=== PATIENT | female | born 1970 | race Caucasian/White ===

== ENCOUNTER 2018-11-06 14:41 | Inpatient (IN) ==
[2018-11-06] MEDS ORDERED: MethylPREDNISolone Sod Succinate Inj 125 MG/2 ML Vial IV.PUSH ONE (15:20)
--- NOTE | 2018-11-06 15:27 | ED ---
HPI General Chief Complaint: Shortness of Breath/Dyspnea Stated Complaint: sob/cough x 2 wks-worse lastnight Time Seen by Provider: 11/06/18 14:57 Source: patient Mode of arrival: ambulatory Limitations: no limitations History of Present Illness Patient is a 47-year-old female with past medical history of tobacco abuse, asthma, presents the emergency room with complaints of shortness of breath with cough and congestion. Patient reports that over the past few months, she has not been feeling well. Patient reports that she has been feeling short of breath and has had a productive cough. Patient reports that she has seen a casino worker in the past -Dr. Kyle who started her on albuterol nebulizer treatments. Patient reports that she took her last dose of albuterol last night. She has no follow-up with pulmonology as she has no insurance. Patient reports concerns as for the past few weeks, her cough has progressed. Patient reports that she is coughing up pus. Denies any fever/chills. Reports that she is a past smoker, she quit smoking cigarettes about 6-7 weeks ago. MD Complaint: Reports shortness of breath, cough and "asthma attack" Onset (ago): month(s) Severity: moderate Consistency/Duration: constant Relieving factors: bronchodilators Exacerbating factors: nothing Known history of: Reports COPD Treatment prior to arrival: Reports none Related Data Home Medications Medication Instructions Recorded Confirmed albuterol sulfate 2.5 mg INHALATION Q4-6H PRN 11/06/18 11/06/18 alprazolam [Xanax] mg PO BID PRN 11/06/18 Allergies Allergy/AdvReac Type Severity Reaction Status Date / Time codeine Allergy Itching Verified 11/06/18 14:46 Penicillins Allergy Hives Verified 11/06/18 14:46 Review of Systems ROS: all other systems reviewed are negative PMFSH History History Provided By: Patient Medical History Medical History Asthma (Acute) Anxiety (Acute) Hx of hysterectomy (Acute) Surgical History Surgical History Hx of elbow surgery (Acute) Social History Social History Substance History: No History of Abuse Second Hand Smoke Exposure: Yes Smoking Status: Former smoker Tobacco Type: Cigarettes How Often Do You Have a Drink Containing Alcohol: Never Recent Travel in [facility] within the Last 8 Weeks: No Recent Out of Country Travel within the Last 8 Weeks: No Exam Narrative Exam Narrative: GENERAL: Moderate distress SKIN: Focused skin assessment warm/dry. HEAD: Atraumatic. Normocephalic. EYES: Pupils equal and round. No scleral icterus. No injection or drainage. ENT: No nasal bleeding or discharge. Mucous membranes pink and moist. NECK: Trachea midline. No JVD. CARDIOVASCULAR: Tachycardic. No murmur appreciated. RESPIRATORY: No accessory muscle use. Clear to auscultation. Breath sounds equal bilaterally. GASTROINTESTINAL: Abdomen soft, non-tender, nondistended. Hepatic and splenic margins not palpable. MUSCULOSKELETAL: No obvious deformities. No clubbing. No cyanosis. No edema. NEUROLOGICAL: Awake and alert. No obvious cranial nerve deficits. Motor grossly within normal limits. Normal speech. PSYCHIATRIC: Anxious mood and affect; insight and judgment normal. Course Initial Documented Vital Signs Temperature 97.9 F 11/06/18 14:42 Pulse Rate 122 H 11/06/18 14:42 Respiratory Rate 20 11/06/18 14:42 Blood Pressure 120/76 11/06/18 14:42 Pulse Oximetry 98 11/06/18 14:42 Last Documented Vital Signs Temperature 97.9 F 11/06/18 14:42 Pulse Rate 110 H 11/06/18 18:04 Respiratory Rate 20 11/06/18 18:04 Blood Pressure 126/79 11/06/18 18:04 Pulse Oximetry 98 11/06/18 18:04 Medical Decision Making MDM Narrative Medical decision making narrative: During the course of the patients emergency department visit, the patients history, examination, and differential diagnosis were reviewed with the patient. The patient was placed on a ict sales representative with oximetry and frequent blood pressure monitoring. The patient had an IV access obtained and blood work sent for analysis. The patient was initially provided duoneb as well as a dose of solumedrol and IVF. The patients laboratory studies were reviewed and remarkable for WBC 9.7, hemoglobin 10.3, hematocrit 29.6, platelets 985 INR 1.0 Sodium 128, potassium 3.9, chloride 93, BUN 6, creatinine 0.43, glucose 78 Radiology studies were reviewed and remarkable for X-ray of the chest shows a left lobe infiltrate with a small effusion. Levaquin was ordered to treat the left lower lobe infiltrate Patient with a foul-smelling odor in her room, she shows me a bottle with pus in it, will order a CT of her chest with IV contrast to evaluate for possible empyema vs abscess CTA of the chest shows a dense consolidation to the left lower lobe with expected intraparenchymal abscesses Case reviewed with Dr. Talavera who accepts patient to service I did review results of ct study with patient Medical Screen Exam Complete: Yes Emergency Medical Condition: Yes Differential Diagnosis Differential Diagnosis: Empyema, pneumonia, asthma exacerbation, COPD exacerbation, bronchitis Medical Records Medical records reviewed: Yes I reviewed the patient's medical records. Lab Data Result diagrams: 11/06/18 15:35 11/06/18 15:35 Lab Results 11/06/18 11/06/18 11/06/18 Range/Units 15:35 15:35 15:35 CBC w Diff Auto diff final WBC 9.7 (4.0-11.0) th/mm3 RBC 3.29 L (4.00-5.30) mil/mm3 Hgb 10.3 L (11.6-15.3) gm/dL Hct 29.6 L (35.0-46.0) % MCV 90.0 (80.0-100.0) fL MCH 31.3 (27.0-34.0) pg MCHC 34.7 (32.0-36.0) % RDW 13.9 (11.6-17.2) % Plt Count 985 H (150-450) th/mm3 MPV 6.2 L (7.0-11.0) fL Neut % (Auto) 73.2 H (16.0-70.0) % Lymph % (Auto) 16.6 (9.0-44.0) % [place] % (Auto) 8.6 H (0.0-8.0) % Eos % (Auto) 0.7 (0.0-4.0) % Baso % (Auto) 0.9 (0.0-2.0) % Neut # (Auto) 7.1 (1.8-7.7) th/mm3 Lymph # (Auto) 1.6 (1.0-4.8) th/mm3 [place] # (Auto) 0.8 (0.0-0.9) th/mm3 Eos # (Auto) 0.1 (0.0-0.4) th/mm3 Baso # (Auto) 0.1 (0.0-0.2) th/mm3 WBC Differential . Differential Comment . PT 10.5 (9.8-11.6) sec INR 1.0 Ratio Sodium 128 L (136-145) meq/L Potassium 3.9 (3.5-5.1) meq/L Chloride 93 L (98-107) meq/L Carbon Dioxide 26.7 (21.0-32.0) meq/L Anion Gap 8 (5-15) meq/L BUN 6 L (7-18) mg/dL Creatinine 0.48 L (0.50-1.00) mg/dL Estimated GFR Greater than 89 (>89) mL/min Random Glucose 78 (74-106) mg/dL Calcium 8.4 L (8.5-10.1) mg/dL Total Bilirubin 0.4 (0.2-1.0) mg/dL AST 25 (15-37) U/L ALT 18 (10-53) U/L Alkaline Phosphatase 110 (45-117) U/L Total Creatine Kinase 30 (26-192) U/L Troponin I Less than 0.02 L (0.02-0.05) ng/mL Total Protein 8.9 H (6.4-8.2) g/dL Albumin 1.9 L (3.4-5.0) g/dL Urine Opiates Screen (Neg) Ur Barbiturates Screen (Neg) Ur Amphetamines Screen (Neg) U Benzodiazepines Scrn (Neg) Urine Cocaine Screen (Neg) U Cannabinoids Screen (Neg) 11/06/18 Range/Units 15:45 CBC w Diff WBC (4.0-11.0) th/mm3 RBC (4.00-5.30) mil/mm3 Hgb (11.6-15.3) gm/dL Hct (35.0-46.0) % MCV (80.0-100.0) fL MCH (27.0-34.0) pg MCHC (32.0-36.0) % RDW (11.6-17.2) % Plt Count (150-450) th/mm3 MPV (7.0-11.0) fL Neut % (Auto) (16.0-70.0) % Lymph % (Auto) (9.0-44.0) % [place] % (Auto) (0.0-8.0) % Eos % (Auto) (0.0-4.0) % Baso % (Auto) (0.0-2.0) % Neut # (Auto) (1.8-7.7) th/mm3 Lymph # (Auto) (1.0-4.8) th/mm3 [place] # (Auto) (0.0-0.9) th/mm3 Eos # (Auto) (0.0-0.4) th/mm3 Baso # (Auto) (0.0-0.2) th/mm3 WBC Differential Differential Comment PT (9.8-11.6) sec INR Ratio Sodium (136-145) meq/L Potassium (3.5-5.1) meq/L Chloride (98-107) meq/L Carbon Dioxide (21.0-32.0) meq/L Anion Gap (5-15) meq/L BUN (7-18) mg/dL Creatinine (0.50-1.00) mg/dL Estimated GFR (>89) mL/min Random Glucose (74-106) mg/dL Calcium (8.5-10.1) mg/dL Total Bilirubin (0.2-1.0) mg/dL AST (15-37) U/L ALT (10-53) U/L Alkaline Phosphatase (45-117) U/L Total Creatine Kinase (26-192) U/L Troponin I (0.02-0.05) ng/mL Total Protein (6.4-8.2) g/dL Albumin (3.4-5.0) g/dL Urine Opiates Screen Neg (Neg) Ur Barbiturates Screen Neg (Neg) Ur Amphetamines Screen Neg (Neg) U Benzodiazepines Scrn Pos H (Neg) Urine Cocaine Screen Neg (Neg) U Cannabinoids Screen Pos H (Neg) Imaging Data Radiologist's impression: Chest X-Ray 11/06/18 15:21 CONCLUSION: Left lower lobe infiltrate with small effusion. Chest CTA 11/06/18 16:30 CONCLUSION: 1. Dense consolidation involving the left lower lobe with suspected intraparenchymal abscesses with the largest measuring 4 cm. 2. No acute pulmonary emboli. ECG Data EKG Prior to Arrival: No Interpretation: EKG at 1556: Sinus tach at 117bpm, qt/qtc: 304/374 Discharge Plan Discharge Disposition Patient Disposition: ED Admit(ED Internal Use Only) Discharge Condition Condition: Stable Discharge Order Discharge Orders: ED Use Only Admit Order (Routine); Ordered 11/06/18 Ordered By: Didi Aguilar Physicians Team ED Provider: Didi Aguilar Primary Care Provider: Primary Care Lolis,Kaur Attending Provider: Ricardo Talavera Other Providers: Brooklynn Roberts ; Suhas Landry V Status ED Status: Admitted Patient
[2018-11-06] MEDS ORDERED: Sod Chloride 0.9% Inj 1,000 ML IV.SIG SCH (15:30)
[2018-11-06 15:53] LABS: Baso # (Auto) 0.1 th/mm3 (0.0-0.2); Baso % (Auto) 0.9 % (0.0-2.0); Eos # (Auto) 0.1 th/mm3 (0.0-0.4); Eos % (Auto) 0.7 % (0.0-4.0); Hematocrit 29.6 % (35.0-46.0); Hemoglobin 10.3 gm/dL (11.6-15.3); Lymph # (Auto) 1.6 th/mm3 (1.0-4.8); Lymph % (Auto) 16.6 % (9.0-44.0); Mean Corpuscular HGB Conc 34.7 % (32.0-36.0); Mean Corpuscular Hemoglobin 31.3 pg (27.0-34.0); Mean Platelet Volume 6.2 fL (7.0-11.0); Mono # (Auto) 0.8 th/mm3 (0.0-0.9); Mono % (Auto) 8.6 % (0.0-8.0); Neut # (Auto) 7.1 th/mm3 (1.8-7.7); Neut % (Auto) 73.2 % (16.0-70.0); Platelet Count 985 th/mm3 (150-450); Red Blood Count 3.29 mil/mm3 (4.00-5.30); Red Cell Distribution Width 13.9 % (11.6-17.2); White Blood Count 9.7 th/mm3 (4.0-11.0)
--- NOTE | 2018-11-06 16:00 | XR ---
EXAM DATE: 11/06/2018 3:49 PM EST AGE/SEX: 47 years / Female INDICATIONS: Short of breath, chest pains CLINICAL DATA: This is the patient's initial encounter. Patient reports that signs and symptoms have been present for 1 month and indicates a pain score of 8/10. MEDICAL/SURGICAL HISTORY: None. None. COMPARISON: No prior exams available for comparison. FINDINGS: A single AP view of the chest demonstrates an intra-alveolar infiltrate involving the left lower lob e. Tiny left effusion. Right lung is clear. Heart is normal in size. CONCLUSION: Left lower lobe infiltrate with small effusion. Electronically signed by: Allen Carrillo MD Board Certified Radiologist 11/06/2018 3:59 PM EST
[2018-11-06 16:04] LABS: Chloride 93 meq/L (98-107); Potassium 3.9 meq/L (3.5-5.1); Sodium 128 meq/L (136-145)
[2018-11-06 16:06] LABS: Prothrombin Time 10.5 sec (9.8-11.6)
[2018-11-06 16:10] LABS: Albumin 1.9 g/dL (3.4-5.0); Anion Gap 8 meq/L (5-15); Blood Urea Nitrogen 6 mg/dL (7-18); Calcium 8.4 mg/dL (8.5-10.1); Carbon Dioxide 26.7 meq/L (21.0-32.0); Glucose,Random 78 mg/dL (74-106)
[2018-11-06 16:12] LABS: Amphetamine Screen,Urine Neg (Neg); Barbiturate Screen,Urine Neg (Neg); Cannabinoid Screen,Urine Pos (Neg); Cocaine Screen,Urine Neg (Neg)
[2018-11-06 16:13] LABS: Alanine Aminotransferase 18 U/L (10-53); Aspartate Aminotransferase 25 U/L (15-37)
[2018-11-06 16:14] LABS: Glomerular Filtration Rate Greater Than 89 mL/min (>89)
[2018-11-06 16:15] LABS: Total Protein 8.9 g/dL (6.4-8.2)
[2018-11-06 16:16] LABS: Alkaline Phosphatase 110 U/L (45-117)
[2018-11-06 16:21] LABS: Opiate Screen,Urine Neg (Neg)
[2018-11-06 16:21] LABS: Creatine Kinase 30 U/L (26-192)
--- NOTE | 2018-11-06 17:40 | CT ---
EXAM DATE: 11/06/2018 5:20 PM EST AGE/SEX: 47 years / Female INDICATIONS: Short of breath, productive cough, and congestion for two weeks, worse since last night . CLINICAL DATA: This is the patient's initial encounter. Patient reports that signs and symptoms have been present for 2 weeks and indicates a pain score of 8/10. MEDICAL/SURGICAL HISTORY: Asthma. Hysterectomy. RADIATION DOSE: 5.76 CTDI (mGy) COMPARISON: No prior exams available for comparison. TECHNIQUE: Volumetric scanning was performed using a multi-row detector CT scanner during bolus infu stiven of 65 ml Omnipaque 350 (iohexol) nonionic water-soluble contrast as a single exam dose. The adalberto a was post processed with a variety of visualization algorithms including full volume maximum intensi ty projection and sliding thin slab reformation. Using automated exposure control and adjustment of t he mA and/or kV according to patient size, radiation dose was kept as low as reasonably achievable to obtain optimal diagnostic quality images. DICOM format image data is available electronically for r eview and comparison. FINDINGS: Pulmonary Arteries: No filling defects are seen in the pulmonary arteries out to the subsegmental ve ssels. The left and right pulmonary arteries are normal in diameter. Lung: Diffuse emphysematous changes most pronounced within the upper lobes bilaterally. Dense consol idation involving the entire left lower lobe. Several parenchymal abscesses are seen involving the le ft lower lobe. The largest measures approximately 4 cm. Linear scarring within the right base.. Effusion: None. Mediastinum: No evidence of mediastinal or hilar adenopathy. Other: The axilla is unremarkable. CONCLUSION: 1. Dense consolidation involving the left lower lobe with suspected intraparenchymal abscesses with the largest measuring 4 cm. 2. No acute pulmonary emboli. Electronically signed by: Allen Carrillo MD Board Certified Radiologist 11/06/2018 5:39 PM EST
[2018-11-06] MEDS ORDERED: Acetaminophen 325 MG Tablet PO PRN (17:50)
[2018-11-06] MEDS ORDERED: Vancomycin Consult Pharmacy OTHER PRN (17:58)
[2018-11-06] MEDS ORDERED: Vancomycin Inj 1,000 MG in Sodium Chlor 0.9% Inj 250 ML IV.SIG ONE (18:00)
[2018-11-06] MEDS: ALPRAZolam 0.25 MG Tablet PO PRN (18:29)
--- NOTE | 2018-11-06 18:36 | P.HPIM ---
History of Present Illness Primary Care Physician: No Primary Care Physician Chief Complaint: Persistant Cough, Recurrent Pneumonia with foul odor History of Present Illness: Mrs. Caba is a 47 year old female. She says for approximately 8 weeks she has been having problems with recurrent cough. The cough started shortly after a vacation down to [place]. She is a smoker and likely has underlying lung disease. In the past 8 weeks she has visited the hospital several times. She is been diagnosed with pneumonia and treated with antibiotics. Breathing treatments have been provided for symptoms. Despite these treatments the patient has persistent coughing and productive coughing. Sputum and breath have developed a chronic foul odor. No fevers reported. CTA of the chest today shows evidence of a dense left lower lobe consolidation with evidence of multiple abscesses. Largest abscess is 4 cm. No other complaints tonight. Inpatient Certification Inpatient Certification: I certify that the inpatient services were ordered in accordance with Medicare regulations governing the order. This includes certification that hospital inpatient services are reasonable and necessary and in the case of services not specified as inpatient-only under 42 CFR 419.22(n), that they are appropriately provided as inpatient services in accordance to with the 2-midnight benchmark under 43 CFR 412.3(e) Estimated Total Length of Stay (Days): 5 Plans for Post Hospital Care: Home Review of Systems Constitutional: No fevers, no chills no night sweats, no fatigue, no weakness Eyes: No eye pain, no blurry vision, no loss of vision ENT: No sore throat, no ear pain, no rhinorrhea Cardiovascular: No chest pain, no tachycardia, no palpitations, no syncope Respiratory: No wheezing, shortness of breath, cough, purulent sputum, foul odor Gastrointestinal: No abdominal pain, no black tarry stools, no bright red blood per rectum, no vomiting, no diarrhea Musculoskeletal: No joint pain, no muscle cramps, no stiffness Integumentary: No rash, no ulcers, no drainage Neurologic: No sensory loss, no loss of motor function, no dizziness Psychiatric: No behavioral changes, no hallucinations, no suicidal ideations PMF Medical History Medical History Asthma (Acute) Anxiety (Acute) Hx of hysterectomy (Acute) Surgical History Surgical History Hx of elbow surgery (Acute) Social History Social History Substance History: No History of Abuse Second Hand Smoke Exposure: Yes Smoking Status: Former smoker Tobacco Type: Cigarettes How Often Do You Have a Drink Containing Alcohol: Never Recent Travel in [place] within the Last 8 Weeks: No Recent Out of Country Travel within the Last 8 Weeks: No Immunization History Tetanus Immunization: Unsure Medications and Allergies Allergies Allergy/AdvReac Type Severity Reaction Status Date / Time codeine Allergy Itching Verified 11/06/18 14:46 Penicillins Allergy Hives Verified 11/06/18 14:46 Home Medications Medication Instructions Recorded Confirmed Type albuterol sulfate 2.5 mg INHALATION Q4-6H PRN 11/06/18 11/06/18 History alprazolam [Xanax] mg PO BID PRN 11/06/18 History Active Medications: Active Medications Acetaminophen (Tylenol) 650 mg PO Q4H PRN PRN Reason: Temp > 100.4 Hydrocodone Bitart/Acetaminophen ([place]ushing 10/325) 1 tab PO Q4H PRN PRN Reason: Pain 7 to 10 Hydrocodone Bitart/Acetaminophen ([place]ushing 5/325) 1 tab PO Q4H PRN PRN Reason: Pain 3 to 6 Al Hydroxide/Mg Hydroxide (Milk Of Magnesia Liq) 30 ml PO Q12H PRN PRN Reason: Mild Constipation Albuterol (Albuterol Neb (Prn)) 2.5 mg NEB Q4HR NEB PRN PRN Reason: Dyspnea or Wheezing Alprazolam (Xanax) 0.25 mg PO Q6HR PRN PRN Reason: anxiety Guaifenesin (Robitussin Liq) 200 mg PO Q6HR PRN PRN Reason: COUGH Levofloxacin/Dextrose (Levaquin 750 Mg Premix Inj) 150 mls @ 100 mls/hr IV.SIG ONCE ONE Stop: 11/06/18 18:31 Last Admin: 11/06/18 17:27 Dose: 100 mls/hr Fluconazole (Diflucan 400 Mg Premix Bag) 200 mls @ 100 mls/hr IV.SIG Q24H WESLY Vancomycin HCl 1,000 mg/ (Sodium Chloride) 250 mls @ 250 mls/hr IV.SIG ONCE ONE Stop: 11/06/18 18:59 Piperacillin/Tazobactam/Dextrose (Zosyn 3.375 Gm Premix) 3.375 gm in 50 mls @ 100 mls/hr IV.SIG Q6H WESLY Lactobacillus Acidophilus (Lactinex) 1 tab PO TID W[facility]LY Ondansetron HCl (Zofran Inj) 4 mg IV.PUSH Q6H PRN PRN Reason: NAUSEA OR VOMITING Pharmacy Profile Note (Vancomycin Consult Pharmacy) 1 each OTHER UNSCH PRN PRN Reason: Pharmacy to dose Sodium Chloride (Ns Flush) 2 ml IV.FLUSH PRN PRN PRN Reason: FLUSH AFTER USING IV ACCESS Sodium Chloride (Ns Flush) 2 ml IV.FLUSH BID [facility]LY Sodium Chloride (Ns Flush) 2 ml IV.FLUSH PRN PRN PRN Reason: FLUSH AFTER USING IV ACCESS Physical Exam Vital signs: Vital Signs 11/06/18 14:42 11/06/18 15:52 11/06/18 18:04 Temperature 97.9 F Pulse Rate 122 H 117 H 110 H Respiratory Rate 20 24 20 Blood Pressure 120/76 126/79 Pulse Oximetry 98 98 Intake & Output 11/05/18 11/06/18 11/06/18 18:59 06:59 18:59 Intake Total 1000 / 1000 Balance 1000 / 1000 Weight 41.3 kg Intake: IV 1000 / 1000 NS Inj 1,000 ML @ 1000 mls/hr 1000 / 1000 IV.SIG BOLUS [facility]LY Rx#:[id number] Results Labs CBC & Chem 7: 11/07/18 08:47 11/07/18 08:47 Imaging Impressions Chest X-Ray 11/06/18 15:21 CONCLUSION: Left lower lobe infiltrate with small effusion. Chest CTA 11/06/18 16:30 CONCLUSION: 1. Dense consolidation involving the left lower lobe with suspected intraparenchymal abscesses with the largest measuring 4 cm. 2. No acute pulmonary emboli. Caprini VTE Risk Assessment Caprini VTE Risk Assessment: No/Low Risk (score <= 1) Caprini Risk Assessment Model: Point Value = 1 Point Value = 2 Point Value = 3 Point Value = 5 Age 41-60 Minor surgery BMI > 25 kg/m2 Swollen legs Varicose veins or History of unexplained or recurrent spontaneous Oral contraceptives or hormone replacement Sepsis (< 1 month) Serious lung disease, including pneumonia (< 1 month) Abnormal pulmonary function Acute myocardial infarction Congestive heart failure (< 1 month) History of inflammatory bowel disease Medical patient at bed rest Age 61-74 Arthroscopic surgery Major open surgery (> 45 min) Laparoscopic surgery (> 45 min) Malignancy Confined to bed (> 72 hours) Immobilizing plaster cast Central venous access Age >= 75 History of VTE Family history of VTE Factor V Leiden Prothrombin [id number] Lupus anticoagulant Anticardiolipin antibodies Elevated serum homocysteine Heparin-induced thrombocytopenia Other congenital or acquired thrombophilia Stroke (< 1 month) Elective arthroplasty Hip, pelvis, or leg fracture Acute spinal cord injury (< 1 month) Prophylaxis Regimen: Total Risk Factor Score Risk Level Prophylaxis Regimen 0-1 Low Early ambulation 2 Moderate Order ONE of the following: *Sequential Compression Device (SCD) *Heparin 5000 units SQ BID 3-4 Higher Order ONE of the following medications: *Heparin 5000 units SQ TID *Enoxaparin/Lovenox 40 mg SQ daily (WT < 150 kg, CrCl > 30 mL/min) *Enoxaparin/Lovenox 30 mg SQ daily (WT < 150 kg, CrCl > 10-29 mL/min) *Enoxaparin/Lovenox 30 mg SQ BID (WT < 150 kg, CrCl > 30 mL/min) AND/OR *Sequential Compression Device (SCD) 5 or more Highest Order ONE of the following medications: *Heparin 5000 units SQ TID (Preferred with Epidurals) *Enoxaparin/Lovenox 40 mg SQ daily (WT < 150 kg, CrCl > 30 mL/min) *Enoxaparin/Lovenox 30 mg SQ daily (WT < 150 kg, CrCl > 10-29 mL/min) *Enoxaparin/Lovenox 30 mg SQ BID (WT < 150 kg, CrCl > 30 mL/min) AND *Sequential Compression Device (SCD) Assessment and Plan Plan 47-year-old female admitted secondary to cavitary pneumonia Cavitary pneumonia, left lower lobe ID consult Pulmonology consult Vancomycin Diflucan Levaquin (patient has a penicillin allergy) Probiotics Oxygen is needed Albuterol nebulized treatments as needed General anxiety disorder Continue Xanax DVT Prophylaxis Patient ambulatory SCDs
[2018-11-06] MEDS ORDERED: Piperacil/Tazo 3.375 GM Premix 3.375 GM/50 ML PIGGYBACK IV.SIG SCH (20:00)
[2018-11-06] MEDS: Lactobacillus Acidophilus/L. Spores Tablet PO SCH (23:02)
[2018-11-07] MEDS: ALPRAZolam 0.25 MG Tablet PO PRN ×4 (00:47→21:29)
[2018-11-07] MEDS ORDERED: Sodium Chlor 0.9% Inj 500 ML IV.SIG SCH (01:34)
[2018-11-07] MEDS: Sod Chloride 0.9% Inj 1,000 ML IV.CONT SCH ×2 (01:55→21:31)
[2018-11-07] MEDS ORDERED: Sod Chloride 0.9% Inj 1,000 ML IV.SIG SCH (03:57)
[2018-11-07] MEDS: Vancomycin Inj 750 MG in Sodium Chlor 0.9% Inj 250 ML IV.SIG SCH ×2 (06:00→18:16)
[2018-11-07] MEDS: Lactobacillus Acidophilus/L. Spores Tablet PO SCH ×3 (08:47→17:32)
[2018-11-07 09:18] LABS: Hemoglobin 9.8 gm/dL (11.6-15.3); Red Blood Count 3.19 mil/mm3 (4.00-5.30); White Blood Count 6.1 th/mm3 (4.0-11.0)
[2018-11-07 09:19] LABS: Baso % (Auto) 0.4 % (0.0-2.0); Eos % (Auto) 0.1 % (0.0-4.0); Hematocrit 29.3 % (35.0-46.0); Lymph # (Auto) 0.8 th/mm3 (1.0-4.8); Lymph % (Auto) 13.1 % (9.0-44.0); Mean Corpuscular HGB Conc 33.4 % (32.0-36.0); Mean Corpuscular Hemoglobin 30.6 pg (27.0-34.0); Mean Corpuscular Volume 91.7 fL (80.0-100.0); Mean Platelet Volume 6.4 fL (7.0-11.0); Mono # (Auto) 0.2 th/mm3 (0.0-0.9); Mono % (Auto) 2.6 % (0.0-8.0); Neut # (Auto) 5.1 th/mm3 (1.8-7.7); Neut % (Auto) 83.8 % (16.0-70.0); Platelet Count 952 th/mm3 (150-450); Red Cell Distribution Width 14.3 % (11.6-17.2)
[2018-11-07 09:50] LABS: Calcium 8.3 mg/dL (8.5-10.1)
--- NOTE | 2018-11-07 09:50 | P.CONID ---
History of Present Illness Service: Infectious Disease Consult date: 11/07/18 Requesting Physician: Ricardo Talavera Reason for Consult: Evaluation and management of lung abscess Primary Care Provider: No Primary Care Physician Chief Complaint: Persistant Cough, Recurrent Pneumonia with foul odor History of Present Illness: is a 47-year-old female with past medical history significant for chronic smoking and possible underlying lung disease. Patient reports that she may have indulged in binge drinking during the [place] race. She also had been on a vacation to [place] after which in late June early July she started developing symptoms. She presented to emergency room and was given several courses of antibiotics. She has visited the hospital several times up to 8 weeks at the present time. She was told that she needs to see a climatologist but because the bronchoscopy cost $250 she has not been able to undergo this procedure. Due to persistent coughing and large amounts of sputum production with chronic foul order patient presented to the hospital. She reports no blood in the sputum. She denies any fevers. She does report significant weight loss. Approximately 20 pound weight loss in the last 8 weeks unintentional. She denies any exposure to any persons with tuberculosis. She denies any travel. She does report she has a son who has terminal cancer and she is primary caregiver for the patient. A CTA of the chest was done which showed evidence of a dense left lower lobe consolidation with evidence of multiple abscesses the largest being 4 cm. Patient has had blood cultures drawn and admission sputum cultures have been obtained and MTB PCR was added by me. Pulmonary consult is pending patient will likely need a bronchoscopy. Infectious diseases consulted for evaluation and management of multiple lung abscesses. Review of Systems All other systems reviewed negative except as stated in HPI PMFSH - History History Provided By: Patient - Medical History Medical History: Medical History (Last Updated 11/06/18 @ 15:26 by Didi Aguilar) Asthma Anxiety Hx of hysterectomy - Surgical History Surgical History: Surgical History (Last Reviewed 11/06/18 @ 15:26 by Didi Aguilar) Hx of elbow surgery - Family History Family History: Family History (Last Reviewed 11/06/18 @ 15:26 by Didi Aguilar) Other Osteoarthritis - Tobacco History Second Hand Smoke Exposure: Yes Tobacco Use In Past 30 Days: No Smoking Status: Former smoker Tobacco Type: Cigarettes - Alcohol History How Often Do You Have a Drink Containing Alcohol: Never - Substance Use History Substance History: No History of Abuse - Travel History Recent Travel in the [place] Within the Last 8 Weeks: No Recent Travel Out of the Country Within the Last 8 Weeks: No - Immunization History Tetanus Immunization: Unsure Hx Influenza Vaccine This Season: No Medications and Allergies Active Medications: Active Medications Acetaminophen (Tylenol) 650 mg PO Q4H PRN PRN Reason: Temp > 100.4 Hydrocodone Bitart/Acetaminophen (Ermine 10/325) 1 tab PO Q4H PRN PRN Reason: Pain 7 to 10 Last Admin: 11/07/18 08:48 Dose: 1 tab Hydrocodone Bitart/Acetaminophen (Ermine 5/325) 1 tab PO Q4H PRN PRN Reason: Pain 3 to 6 Last Admin: 11/07/18 04:33 Dose: 1 tab Al Hydroxide/Mg Hydroxide (Milk Of Magnesia Liq) 30 ml PO Q12H PRN PRN Reason: Mild Constipation Albuterol (Albuterol Neb (Prn)) 2.5 mg NEB Q4HR NEB PRN PRN Reason: Dyspnea or Wheezing Last Admin: 11/06/18 21:52 Dose: 2.5 mg Alprazolam (Xanax) 0.25 mg PO Q6HR PRN PRN Reason: anxiety Last Admin: 11/07/18 08:48 Dose: 0.25 mg Guaifenesin (Robitussin Liq) 200 mg PO Q6HR PRN PRN Reason: COUGH Fluconazole (Diflucan 400 Mg Premix Bag) 200 mls @ 100 mls/hr IV.SIG Q24H [facility] Last Infusion: 11/07/18 01:19 Dose: Infused Levofloxacin/Dextrose (Levaquin 750 Mg Premix Inj) 150 mls @ 100 mls/hr IV.SIG Q24H [facility] Vancomycin HCl 750 mg/ Sodium (Chloride) 257.5 mls @ 250 mls/hr IV.SIG Q12H [facility] Last Infusion: 11/07/18 07:02 Dose: Infused Sodium Chloride (Ns Inj) 1,000 mls @ 50 mls/hr IV.CONT .Q20H W[facility]LY Last Admin: 11/07/18 01:55 Dose: 50 mls/hr Lactobacillus Acidophilus (Lactinex) 1 tab PO TID WESLY Last Admin: 11/07/18 08:47 Dose: 1 tab Miscellaneous Information ([facility] Ordered Lab Info) 1 each OTHER ONCE ONE Stop: 11/08/18 05:46 Ondansetron HCl (Zofran Inj) 4 mg IV.PUSH Q6H PRN PRN Reason: NAUSEA OR VOMITING Pharmacy Profile Note (Vancomycin Consult Pharmacy) 1 each OTHER UNSCH PRN PRN Reason: Pharmacy to dose Sodium Chloride (Ns Flush) 2 ml IV.FLUSH BID WESLY Last Admin: 11/07/18 08:49 Dose: Not Given Sodium Chloride (Ns Flush) 2 ml IV.FLUSH PRN PRN PRN Reason: FLUSH AFTER USING IV ACCESS Allergies Allergy/AdvReac Type Severity Reaction Status Date / Time codeine Allergy Itching Verified 11/06/18 14:46 Penicillins Allergy Hives Verified 11/06/18 14:46 Home Medications Medication Instructions Recorded Confirmed Type albuterol sulfate 2.5 mg INHALATION Q4-6H PRN 11/06/18 11/06/18 History alprazolam [Xanax] mg PO BID PRN 11/06/18 History Exam Vital signs: Vital Signs 11/06/18 14:42 11/06/18 15:52 11/06/18 18:04 Temperature 97.9 F Pulse Rate 122 H 117 H 110 H Respiratory Rate 20 24 20 Blood Pressure 120/76 126/79 Pulse Oximetry 98 98 11/06/18 19:15 11/06/18 20:00 11/06/18 20:02 Temperature 98.5 F Pulse Rate 92 H 103 H 90 Respiratory Rate 18 20 22 Blood Pressure 92/66 L 100/55 L 96/52 L Pulse Oximetry 99 11/06/18 21:52 11/07/18 00:00 11/07/18 04:00 Temperature 98.0 F 97.6 F Pulse Rate 93 H 101 H 72 Respiratory Rate 18 20 20 Blood Pressure 95/49 L 97/55 L Pulse Oximetry 98 98 11/07/18 08:00 Temperature 97.2 F L Pulse Rate 93 H Respiratory Rate 23 Blood Pressure 106/71 Pulse Oximetry 98 Intake & Output 11/06/18 11/07/18 11/07/18 18:59 06:59 18:59 Intake Total 1150 / 1150 1949 / 1949 257.5 / 257.5 Balance 1150 / 1150 1949 / 1949 257.5 / 257.5 Weight 41.3 kg 50 kg Intake: IV 1150 / 1150 1950 / 1950 257.5 / 257.5 Diflucan 400 mg Premix Bag 200 200 / 200 ML @ 100 mls/hr IV.SIG Q24H WESLY Rx#:[id number] Levaquin 750 mg Premix Inj 150 150 / 150 ML @ 100 mls/hr IV.SIG ONCE ONE Rx#:[id number] NS Inj 1,000 ML @ 1000 mls/hr 1000 / 1000 1000 / 1000 IV.SIG BOLUS WESLY Rx#:[id number] NS Inj 500 ML @ 1000 mls/hr IV. 500 / 500 SIG BOLUS WESLY Rx#:[id number] Vancomycin Inj 1,000 MG In NS 250 / 250 Inj 250 ML @ 250 mls/hr IV.SIG ONCE ONE Rx#:[id number] Vancomycin Inj 750 MG In NS Inj 257.5 / 257.5 250 ML @ 250 mls/hr IV.SIG Q12H WESLY Rx#:[id number] Other: # Voids 3 Date of Last Bowel Movement 11/05/18 Weight On Admission 50 kg Narrative: GENERAL: Thin built, well-developed, not in acute distress SKIN: Cool and dry, no generalized rash HEAD: Atraumatic. Normocephalic. No temporal or scalp tenderness. EYES: Pupils equal round and reactive. Scleral icterus. No injection or drainage. No petechia ENT: Nothing abnormal detected NECK: Trachea midline. Supple, nontender, no meningeal signs. CARDIOVASCULAR: HS audible. RESPIRATORY: Clear to auscultation bilaterally. Decreased air entry in the bases. GASTROINTESTINAL: Abdomen soft nontender. MUSCULOSKELETAL: Extremities without clubbing, cyanosis. NEUROLOGICAL: Alert oriented 3. Nonfocal. Psych cooperative IV line sites ok. Results - Labs CBC & Chem 7: 11/07/18 08:47 11/07/18 08:47 Labs: Laboratory Results - last 24 hr 11/06/18 11/06/18 11/06/18 15:35 15:35 15:35 CBC w Diff Auto diff final WBC 9.7 RBC 3.29 L Hgb 10.3 L Hct 29.6 L MCV 90.0 MCH 31.3 MCHC 34.7 RDW 13.9 Plt Count 985 H MPV 6.2 L Neut % (Auto) 73.2 H Lymph % (Auto) 16.6 [place] % (Auto) 8.6 H Eos % (Auto) 0.7 Baso % (Auto) 0.9 Neut # (Auto) 7.1 Lymph # (Auto) 1.6 [place] # (Auto) 0.8 Eos # (Auto) 0.1 Baso # (Auto) 0.1 WBC Differential . Differential Comment . PT 10.5 INR 1.0 Sodium 128 L Potassium 3.9 Chloride 93 L Carbon Dioxide 26.7 Anion Gap 8 BUN 6 L Creatinine 0.48 L Estimated GFR Greater than 89 Random Glucose 78 Lactic Acid Calcium 8.4 L Total Bilirubin 0.4 AST 25 ALT 18 Alkaline Phosphatase 110 Total Creatine Kinase 30 Troponin I Less than 0.02 L Total Protein 8.9 H Albumin 1.9 L Urine Opiates Screen Ur Barbiturates Screen Ur Amphetamines Screen U Benzodiazepines Scrn Urine Cocaine Screen U Cannabinoids Screen 11/06/18 11/07/18 11/07/18 15:45 01:40 08:47 CBC w Diff Slide review pending WBC 6.1 RBC 3.19 L Hgb 9.8 L Hct 29.3 L MCV 91.7 MCH 30.6 MCHC 33.4 RDW 14.3 Plt Count 952 H MPV 6.4 L Neut % (Auto) 83.8 H Lymph % (Auto) 13.1 [place] % (Auto) 2.6 Eos % (Auto) 0.1 Baso % (Auto) 0.4 Neut # (Auto) 5.1 Lymph # (Auto) 0.8 L [place] # (Auto) 0.2 Eos # (Auto) 0.0 Baso # (Auto) 0.0 WBC Differential Differential Comment . PT INR Sodium Potassium Chloride Carbon Dioxide Anion Gap BUN Creatinine Estimated GFR Random Glucose Lactic Acid 2.7 H Calcium Total Bilirubin AST ALT Alkaline Phosphatase Total Creatine Kinase Troponin I Total Protein Albumin Urine Opiates Screen Neg Ur Barbiturates Screen Neg Ur Amphetamines Screen Neg U Benzodiazepines Scrn Pos H Urine Cocaine Screen Neg U Cannabinoids Screen Pos H - Imaging Impressions Chest X-Ray 11/06/18 15:21 CONCLUSION: Left lower lobe infiltrate with small effusion. Chest CTA 11/06/18 16:30 CONCLUSION: 1. Dense consolidation involving the left lower lobe with suspected intraparenchymal abscesses with the largest measuring 4 cm. 2. No acute pulmonary emboli. Assessment and Plan - Plan Possible sepsis on admission Lung abscesses History of binge drinking possible aspiration Patient denies any IV drug abuse Penicillin allergy hives noted. Chronic smoker 1 pack/day for approximately 30 years. Weight loss decrease in appetite likely secondary to chronic infection but would like to rule out HIV Recommendations Add MTB PCR to sputum AFB culture Follow blood cultures Follow sputum cultures Agree with pulmonary consult for bronchoscopy Would consider sending cytology as she is at high risk for cancer because of smoking for many years. Check hepatitis profile Check HIV antibody screen Check CRP Check 2D echo Discussed with Dr. Aissatou Shay to start [place] coverage for infectious disease on November 08, 2017.
[2018-11-07 09:51] LABS: Albumin 1.6 g/dL (3.4-5.0); Carbon Dioxide 26.4 meq/L (21.0-32.0)
[2018-11-07 10:05] LABS: Alanine Aminotransferase 12 U/L (10-53); Alkaline Phosphatase 86 U/L (45-117); Anion Gap 6 meq/L (5-15); Blood Urea Nitrogen 6 mg/dL (7-18); Chloride 102 meq/L (98-107); Glomerular Filtration Rate Greater Than 89 mL/min (>89); Glucose,Random 180 mg/dL (74-106); Sodium 134 meq/L (136-145); Total Protein 7.5 g/dL (6.4-8.2)
[2018-11-07 10:17] LABS: Aspartate Aminotransferase 16 U/L (15-37); Platelet Morphology Normal (Normal)
--- NOTE | 2018-11-07 12:37 | P.PNIM ---
Subjective Interval history: Follow-up for left lung abscess. Patient is currently doing well. On room air. Denies any fever or chills but she reports left-sided chest pain. She is happy that she does not have to go to the main hospital at this point. Physical Exam Vital signs: Vital Signs 11/06/18 14:42 11/06/18 15:52 11/06/18 18:04 Temperature 97.9 F Pulse Rate 122 H 117 H 110 H Respiratory Rate 20 24 20 Blood Pressure 120/76 126/79 Pulse Oximetry 98 98 11/06/18 19:15 11/06/18 20:00 11/06/18 20:02 Temperature 98.5 F Pulse Rate 92 H 103 H 90 Respiratory Rate 18 20 22 Blood Pressure 92/66 L 100/55 L 96/52 L Pulse Oximetry 99 11/06/18 21:52 11/07/18 00:00 11/07/18 04:00 Temperature 98.0 F 97.6 F Pulse Rate 93 H 101 H 72 Respiratory Rate 18 20 20 Blood Pressure 95/49 L 97/55 L Pulse Oximetry 98 98 11/07/18 08:00 11/07/18 12:00 Temperature 97.2 F L 97.8 F Pulse Rate 86 93 H Respiratory Rate 23 20 Blood Pressure 106/71 100/58 L Pulse Oximetry 98 97 Intake & Output 11/06/18 11/07/18 11/07/18 18:59 06:59 18:59 Intake Total 1150 / 1150 1950 / 1950 257.5 / 257.5 Balance 1150 / 1150 1949 / 1950 257.5 / 257.5 Weight 41.3 kg 50 kg Intake: IV 1150 / 1150 1950 / 1950 257.5 / 257.5 Diflucan 400 mg Premix Bag 200 200 / 200 ML @ 100 mls/hr IV.SIG Q24H W[facility]LY Rx#:[id number] Levaquin 750 mg Premix Inj 150 150 / 150 ML @ 100 mls/hr IV.SIG ONCE ONE Rx#:[id number] NS Inj 1,000 ML @ 1000 mls/hr 1000 / 1000 1000 / 1000 IV.SIG BOLUS WESLY Rx#:[id number] NS Inj 500 ML @ 1000 mls/hr IV. 500 / 500 SIG BOLUS WESLY Rx#:[id number] Vancomycin Inj 1,000 MG In NS 250 / 250 Inj 250 ML @ 250 mls/hr IV.SIG ONCE ONE Rx#:[id number] Vancomycin Inj 750 MG In NS Inj 257.5 / 257.5 250 ML @ 250 mls/hr IV.SIG Q12H W[facility]LY Rx#:[id number] Other: # Voids 3 Date of Last Bowel Movement 11/05/18 11/07/18 Weight On Admission 50 kg Narrative: GENERAL: Well-nourished, well-developed patient. SKIN: Warm and dry. HEAD: Normocephalic. EYES: No scleral icterus. No injection or drainage. NECK: Supple, trachea midline. No JVD or lymphadenopathy. CARDIOVASCULAR: Regular rate and rhythm without murmurs, gallops, or rubs. RESPIRATORY: Moderate air entry. No wheezing noted. Coarse breath sounds noted on the left posterior lung field. GASTROINTESTINAL: Abdomen soft, non-tender, nondistended. MUSCULOSKELETAL: No cyanosis, or edema. BACK: Nontender without obvious deformity. No CVA tenderness. Results Labs CBC & Chem 7: 11/07/18 08:47 11/07/18 08:47 Labs: Microbiology 11/06/18 15:40 Blood - Peripheral Aerobic Blood Culture - Preliminary No growth in 1 day 11/06/18 15:40 Blood - Peripheral Anaerobic Blood Culture - Preliminary No growth in 1 day 11/06/18 15:35 Blood - Peripheral Aerobic Blood Culture - Preliminary No growth in 1 day 11/06/18 15:35 Blood - Peripheral Anaerobic Blood Culture - Preliminary No growth in 1 day 11/06/18 15:40 Nasal Wash Influenza Types A,B Antigen - Final Negative for FLU A and B antigen Infection due to influenza A or B cannot be ruled out since the antigen present in the sample may be below the detection limit of the test. Imaging Imaging: Impressions Chest X-Ray 11/06/18 15:21 CONCLUSION: Left lower lobe infiltrate with small effusion. Chest CTA 11/06/18 16:30 CONCLUSION: 1. Dense consolidation involving the left lower lobe with suspected intraparenchymal abscesses with the largest measuring 4 cm. 2. No acute pulmonary emboli. Assessment and Plan Plan Ms. Caba is a pleasant 47 year old female with a history of tobacco abuse who presented to the hospital on 11/06/2018 due to 8 week duration of cough, foul odor. She has sought medical attention multiple times and despite abx treatments, she has not had any significant improvement of her symptoms. She denies travel to any foreign country, no exposure to anyone known to have TB. Lung abscess -ID consulted. MTB PCR negative. Will switch to standard precaution. -Patient is currently on Vancomycin and Levaquin. Anaerobes are covered. -Will wait for further ID recs regarding anaerobic coverage. -Suppl O2 as needed. -Pulmonary consulted. May need bronch. -However, due to loculated nature of the abscesses, decortication maybe necessary. Tobacco abuse -Patient counselled. Anxiety -Continue Xanax 0.25mg BID PRN. Full code. Ambulation. May consider pharmacological DVT prophylaxis if needed Progress Note: Quality VTE Deep Vein Thrombosis/Pulmonary Embolism Present on Admission: No
--- NOTE | 2018-11-07 15:21 | ECG ---
Date Performed: 11/06/2018 Time Performed: 15:56:46 PTAGE: 47 years EKG: SINUS TACHYCARDIA WITH SHORT ME INTERVAL BORDERLINE LEFT AXIS DEVIATION Since the previous tracing, no significant change noted ABNORMAL RHYTHM ECG PREVIOUS TRACING : 04/21/2016 23.18 DOCTOR: Karan Valdez Interpretating Date/Time 11/07/2018 15:19:12
[2018-11-07 23:40] LABS: Hepatitis A IgM Antibody Nonreactive (Nonreactive); Hepatitits B Surface Antigen Nonreactive (Nonreactive)
[2018-11-08] MEDS: ALPRAZolam 0.25 MG Tablet PO PRN ×4 (03:39→18:59)
[2018-11-08] MEDS ORDERED: Pharmacy Ordered Lab Info OTHER ONE (05:45)
[2018-11-08] MEDS: Vancomycin Inj 750 MG in Sodium Chlor 0.9% Inj 250 ML IV.SIG SCH ×2 (05:46→19:22)
[2018-11-08] MEDS: Lactobacillus Acidophilus/L. Spores Tablet PO SCH ×3 (08:49→17:44)
--- NOTE | 2018-11-08 09:27 | P.DIET ---
Nutritional Evaluation Type of nutrition evaluation: initial Nutrition consult regarding: Diet Evaluation Nutrition screening: Weight Loss > 10 lbs (Weight loss screen) Objective - Diagnosis Lung abscess - Objective Body Mass Index: 20.6 Elbert body weight: 50 kg (110lb) % IBW: 100 Body Weight Used for Calculations: Actual Energy Needs - Lower Range (kCal/kg): 30 Energy Needs - Upper Range (kCal/kg): 35 Lower Limit kCal/kg (kCals): 1,530 Upper Limit kCal/kg (kCals): 1,785 Lower Limit Protein Factor (Grams per Kg): 1.0 Upper Limit Protein Factor (Grams per Kg): 1.2 Lower Protein Needs (Protein): 51 Upper Protein Needs (Protein): 61 Dietitian Reviewed in Medical Record: Current diet, Curent medications, Intake & Output, Labs, Medical history Diet Order: Regular Oral Diet Intake Amount: Good 75-90% Objective Comments: PMH; tobacco abuse, asthma Labs; Na 134, Glucose 180 Medications; reviewed Assessment Assessment: Weight loss screen; Pt presents to [facility] with SOB, cough and congestion and is currently at nutritional risk related to unplanned 20lb weight loss in the past 8 weeks. Pt found to have mass in left lung and is undergoing workup. She is currently ordered for regular diet with PO intake 50-100%. Will send Ensure supplement TID in efforts to support PO intake and minimize further weight loss. Each ensure supplement will provide 250kcal and 9g protein. Labs and medications reviewed. Will continue to follow. Recommendations: 1. Continue with regular diet 2. Ensure nutritional supplement TID Dietitian to Monitor: Lab values, Supplement acceptance, Intake & Output, Diet tolerance, PO Intake, Medical course
--- NOTE | 2018-11-08 11:14 | ECHRPT ---
Indication: SEPSIS POSS ENDOCARDITIS CONCLUSIONS Normal left ventricular size. Wall thickness is normal. The left ventricular systolic function is normal with an estimated ejection fraction in the range of 60-65%. No regional wall motion abnormalities are present. A patent foramen ovale is present with a [id number] shunt demonstrated by color flow Doppler interrogation. Trace to mild mitral valve regurgitation. There is trace tricuspid valve regurgitation. The estimated pulmonary arterial pressure is 33 mmHg. BP: / HR: Rhythm: MEASUREMENTS (Male / Female) Normal Values Technical Quality: 2D ECHO LV Diastolic Diameter PLAX 4.0 cm 4.2 - 5.9 / 3.9 - 5.3 cm LV Systolic Diameter PLAX 2.6 cm IVS Diastolic Thickness 1.0 cm 0.6 - 1.0 / 0.6 - 0.9 cm LVPW Diastolic Thickness 1.0 cm 0.6 - 1.0 / 0.6 - 0.9 cm LV Relative Wall Thickness 0.5 RV Internal Dim ED PLAX 3.5 cm LVOT Diameter 2.0 cm Aortic Root Diameter 2.8 cm LA Systolic Diameter LX 3.2 cm 3.0 - 4.0 / 2.7 - 3.8 cm M-MODE AV Cusp Separation MM 1.7 cm DOPPLER AV Peak Velocity 151.5 cm/s AV Peak Gradient 9.2 mmHg LVOT Peak Velocity 136.0 cm/s LVOT Peak Gradient 7.4 mmHg AV Area Cont Eq pk 2.8 cm Mitral E Point Velocity 96.7 cm/s Mitral A Point Velocity 65.2 cm/s Mitral E to A Ratio 1.5 LV E' Lateral Velocity 14.1 cm/s Mitral E to LV E' Lateral Ratio 6.9 LV E' Septal Velocity 10.6 cm/s Mitral E to LV E' Septal Ratio 9.1 TR Peak Velocity 242.0 cm/s TR Peak Gradient 23.4 mmHg Right Atrial Pressure 10.0 mmHg Pulmonary Artery Systolic Pressu 33.4 mmHg Right Ventricular Systolic Press 33.4 mmHg PV Peak Velocity 144.0 cm/s PV Peak Gradient 8.3 mmHg FINDINGS LEFT VENTRICLE Normal left ventricular size. Wall thickness is normal. The left ventricular systolic function is normal with an estimated ejection fraction in the range of 60-65%. No regional wall motion abnormalities are present. RIGHT VENTRICLE Normal right ventricular size and systolic function. LEFT ATRIUM The left atrial size is normal. RIGHT ATRIUM The right atrial size is normal. ATRIAL SEPTUM A patent foramen ovale is present with a [id number] shunt demonstrated by color flow Doppler interrogation. AORTA The aortic root and proximal ascending aorta are normal in size on limited imaging. MITRAL VALVE Trace to mild mitral valve regurgitation. AORTIC VALVE Trileaflet aortic valve. No aortic valve stenosis or regurgitation. TRICUSPID VALVE There is trace tricuspid valve regurgitation. The estimated pulmonary arterial pressure is 33 mmHg. PULMONARY VALVE No pulmonary valve regurgitation or stenosis. VESSELS The inferior vena cava is normal in size. PERICARDIUM A left sided pleural effusion is present. Jaron Lopez MD (Electronically Signed) Final Date:08 November 2018 11:13
--- NOTE | 2018-11-08 17:37 | P.PNIM ---
Subjective Interval history: Primary complaints of anxiety and problems sleeping today. She feels that her breathing has improved. Odor has decreased. Signs of infection are improving. Physical Exam Vital signs: Vital Signs 11/07/18 20:00 11/08/18 00:00 11/08/18 05:30 Temperature 97.1 F L 97.0 F L Pulse Rate 76 92 H 81 Respiratory Rate 16 16 18 Blood Pressure 102/65 112/66 Pulse Oximetry 98 100 11/08/18 07:00 11/08/18 08:00 11/08/18 09:40 Temperature 96 F L Pulse Rate 91 H Respiratory Rate 18 20 19 Blood Pressure 94/61 L Pulse Oximetry 99 11/08/18 10:10 11/08/18 12:00 11/08/18 13:30 Temperature 96 F L Pulse Rate 98 H Respiratory Rate 20 20 20 Blood Pressure 93/74 L Pulse Oximetry 99 11/08/18 14:00 Temperature Pulse Rate Respiratory Rate 19 Blood Pressure Pulse Oximetry Intake & Output 11/07/18 11/08/18 11/08/18 18:59 06:59 18:59 Intake Total 1217.5 / 1217.5 1887.5 / 1887.5 377.5 / 377.5 Output Total 701 / 701 Balance 516.5 / 516.5 1887.5 / 1887.5 377.5 / 377.5 Weight 51.2 kg Intake: IV 257.5 / 257.5 1407.5 / 1407.5 257.5 / 257.5 NS Inj 1,000 ML @ 50 mls/hr IV. 1000 / 1000 CONT .Q20H W[facility] Rx#:[id number] Levaquin 750 mg Premix Inj 150 150 / 150 ML @ 100 mls/hr IV.SIG Q24H [facility] Rx#:[id number] Vancomycin Inj 750 MG In NS Inj 257.5 / 257.5 257.5 / 257.5 257.5 / 257.5 250 ML @ 250 mls/hr IV.SIG Q12H [facility] Rx#:[id number] Oral 960 / 960 120 / 120 Oral Supplement 480 / 480 Output: Urine 700 / 700 Stool / Other: # Voids 2 Date of Last Bowel Movement 11/07/18 Narrative: GENERAL: NAD, A&Ox3 HEAD: Normocephalic. NECK: Supple, trachea midline. No lymphadenopathy. EYES: No scleral icterus. No injection or drainage. CARDIOVASCULAR: Regular rate and rhythm without murmurs, gallops, or rubs. RESPIRATORY: No accessory muscle use. Decreased breath sounds at left lower lung. GASTROINTESTINAL: Abdomen soft, non-tender, nondistended. MUSCULOSKELETAL: No cyanosis, or edema. SKIN: Warm and dry. NEURO: No focal neurological deficits. Results Labs CBC & Chem 7: 11/07/18 08:47 11/07/18 08:47 Labs: Microbiology 11/07/18 02:00 Sputum - Expectorated Sputum Gram Stain - Final 11/07/18 02:00 Sputum - Expectorated Sputum Sputum Culture - Preliminary Beta Strep not group A 11/06/18 15:40 Blood - Peripheral Aerobic Blood Culture - Preliminary No growth in 2 days 11/06/18 15:40 Blood - Peripheral Anaerobic Blood Culture - Preliminary No growth in 2 days 11/06/18 15:35 Blood - Peripheral Aerobic Blood Culture - Preliminary No growth in 2 days 11/06/18 15:35 Blood - Peripheral Anaerobic Blood Culture - Preliminary No growth in 2 days 11/07/18 02:00 Sputum - Expectorated Sputum Acid Fast Bacilli Smear - Final No acid fast bacilli seen 11/07/18 02:00 Sputum - Expectorated Sputum Fungal Smear - Final No fungal elements seen Assessment and Plan Plan 47-year-old female admitted secondary to cavitary pneumonia Insomnia Ambien Cavitary pneumonia, left lower lobe Vancomycin Levaquin Probiotics Oxygen is needed Albuterol nebulized treatments as needed ID following Pulmonology following Need for bronchoscopy versus decortication Versus another trial of medical management is being determined Beta strep, not group A, grown on culture of sputum General anxiety disorder Continue Xanax DVT Prophylaxis Patient ambulatory SCDs Progress Note: Quality VTE Deep Vein Thrombosis/Pulmonary Embolism Present on Admission: No
--- NOTE | 2018-11-08 18:24 | P.PNID ---
Subjective Remarks: ID FU DR SHERMAN NO FEVER OR CHILLS NO NEW COMPLAINTS HIV / HCV SCREEN NEGATIVE Antibiotics: VANCOMYCIN LEVAQUIN Allergies/Adverse Reactions: Allergies codeine Allergy (Verified 11/06/18 14:46) Itching Penicillins Allergy (Verified 11/06/18 14:46) Hives Objective Vital Signs 11/07/18 20:00 11/08/18 00:00 11/08/18 05:30 Temperature 97.1 F L 97.0 F L Pulse Rate 76 92 H 81 Respiratory Rate 16 16 18 Blood Pressure 102/65 112/66 Pulse Oximetry 98 100 11/08/18 07:00 11/08/18 08:00 11/08/18 09:40 Temperature 96 F L Pulse Rate 91 H Respiratory Rate 18 20 19 Blood Pressure 94/61 L Pulse Oximetry 99 11/08/18 10:10 11/08/18 12:00 11/08/18 13:30 Temperature 96 F L Pulse Rate 98 H Respiratory Rate 20 20 20 Blood Pressure 93/74 L Pulse Oximetry 99 11/08/18 14:00 11/08/18 17:44 Temperature Pulse Rate Respiratory Rate 19 19 Blood Pressure Pulse Oximetry Intake & Output 11/07/18 11/08/18 11/08/18 18:59 06:59 18:59 Intake Total 1217.5 / 1217.5 1887.5 / 1887.5 377.5 / 377.5 Output Total 701 / 701 Balance 516.5 / 516.5 1887.5 / 1887.5 377.5 / 377.5 Weight 51.2 kg Intake: IV 257.5 / 257.5 1407.5 / 1407.5 257.5 / 257.5 NS Inj 1,000 ML @ 50 mls/hr IV. 1000 / 1000 CONT .Q20H [facility] Rx#:[id number] Levaquin 750 mg Premix Inj 150 150 / 150 ML @ 100 mls/hr IV.SIG Q24H [facility] Rx#:[id number] Vancomycin Inj 750 MG In NS Inj 257.5 / 257.5 257.5 / 257.5 257.5 / 257.5 250 ML @ 250 mls/hr IV.SIG Q12H [facility] Rx#:[id number] Oral 960 / 960 120 / 120 Oral Supplement 480 / 480 Output: Urine 700 / 700 Stool Other: # Voids 2 Date of Last Bowel Movement 11/07/18 11/07/18 02:00 Sputum - Expectorated Sputum Gram Stain - Final 11/07/18 02:00 Sputum - Expectorated Sputum Sputum Culture - Preliminary Beta Strep not group A 11/06/18 15:40 Blood - Peripheral Aerobic Blood Culture - Preliminary No growth in 2 days 11/06/18 15:40 Blood - Peripheral Anaerobic Blood Culture - Preliminary No growth in 2 days 11/06/18 15:35 Blood - Peripheral Aerobic Blood Culture - Preliminary No growth in 2 days 11/06/18 15:35 Blood - Peripheral Anaerobic Blood Culture - Preliminary No growth in 2 days 11/07/18 02:00 Sputum - Expectorated Sputum Acid Fast Bacilli Smear - Final No acid fast bacilli seen 11/07/18 02:00 Sputum - Expectorated Sputum Mycobacterial Culture - Pending 11/07/18 02:00 Sputum - Expectorated Sputum Fungal Smear - Final No fungal elements seen 11/07/18 02:00 Sputum - Expectorated Sputum Fungal Culture - Pending 11/06/18 15:40 Nasal Wash Influenza Types A,B Antigen - Final Negative for FLU A and B antigen Infection due to influenza A or B cannot be ruled out since the antigen present in the sample may be below the detection limit of the test. Lab - Hematology Results 11/07/18 08:47 CBC w Diff Slide review pending WBC 6.1 RBC 3.19 L Hgb 9.8 L Hct 29.3 L MCV 91.7 MCH 30.6 MCHC 33.4 RDW 14.3 Plt Count 952 H MPV 6.4 L Neut % (Auto) 83.8 H Lymph % (Auto) 13.1 [place] % (Auto) 2.6 Eos % (Auto) 0.1 Baso % (Auto) 0.4 Neut # (Auto) 5.1 Lymph # (Auto) 0.8 L [place] # (Auto) 0.2 Eos # (Auto) 0.0 Baso # (Auto) 0.0 WBC Differential . Diff Scan Auto diff confirmed Differential Comment . Platelet Estimate High H Platelet Morphology Normal Lab - Chemistry Results 11/07/18 11/07/18 11/07/18 01:40 08:47 08:47 Sodium 134 L Potassium 4.0 Chloride 102 D Carbon Dioxide 26.4 Anion Gap 6 BUN 6 L Creatinine 0.51 Estimated GFR Greater than 89 Random Glucose 180 H D Lactic Acid 2.7 H 1.7 Calcium 8.3 L Total Bilirubin 0.1 L AST 16 ALT 12 Alkaline Phosphatase 86 C-Reactive Protein Total Protein 7.5 D Albumin 1.6 L 11/07/18 19:24 Sodium Potassium Chloride Carbon Dioxide Anion Gap BUN Creatinine Estimated GFR Random Glucose Lactic Acid Calcium Total Bilirubin AST ALT Alkaline Phosphatase C-Reactive Protein 9.44 H Total Protein Albumin Imaging: ITS Impressions Chest X-Ray 11/06/18 15:21 CONCLUSION: Left lower lobe infiltrate with small effusion. Chest CTA 11/06/18 16:30 CONCLUSION: 1. Dense consolidation involving the left lower lobe with suspected intraparenchymal abscesses with the largest measuring 4 cm. 2. No acute pulmonary emboli. Physical Exam: AWAKE / OX 3 PERRL NS CHEST RRR LUNGS COARSE BILATERALLY EQUAL ABD SOFT ACTIVE Assessment and Plan - Plan Lung abscesses History of binge drinking possible aspiration Recommendations CONTINUE LEVAQUIN/ VANCOMYCIN WILL MONITOR AND FU SPUTUM C/S STREP STOP VANCOMYCIN ADD ROCEPHIN AND FU
[2018-11-08] MEDS: Sod Chloride 0.9% Inj 1,000 ML IV.CONT SCH (18:39)
[2018-11-08] MEDS: Zolpidem Tartrate 5 MG Tablet PO PRN (22:23)
[2018-11-09] MEDS: ALPRAZolam 0.25 MG Tablet PO PRN ×6 (00:08→20:57)
[2018-11-09] MEDS: Sod Chloride 0.9% Inj 1,000 ML IV.CONT SCH ×2 (05:45→16:47)
[2018-11-09 06:47] LABS: Chloride 100 meq/L (98-107); Potassium 3.3 meq/L (3.5-5.1); Sodium 134 meq/L (136-145)
[2018-11-09 06:50] LABS: Calcium 8.1 mg/dL (8.5-10.1)
[2018-11-09 06:51] LABS: Albumin 1.7 g/dL (3.4-5.0); Anion Gap 6 meq/L (5-15); Baso % (Auto) 0.4 % (0.0-2.0); Carbon Dioxide 28.4 meq/L (21.0-32.0); Eos % (Auto) 0.3 % (0.0-4.0); Hematocrit 26.5 % (35.0-46.0); Hemoglobin 9.1 gm/dL (11.6-15.3); Lymph # (Auto) 1.1 th/mm3 (1.0-4.8); Lymph % (Auto) 11.9 % (9.0-44.0); Mean Corpuscular HGB Conc 34.2 % (32.0-36.0); Mean Corpuscular Hemoglobin 31.4 pg (27.0-34.0); Mean Platelet Volume 6.5 fL (7.0-11.0); Mono # (Auto) 0.7 th/mm3 (0.0-0.9); Mono % (Auto) 7.3 % (0.0-8.0); Neut # (Auto) 7.8 th/mm3 (1.8-7.7); Neut % (Auto) 80.1 % (16.0-70.0); Platelet Count 831 th/mm3 (150-450); Red Blood Count 2.88 mil/mm3 (4.00-5.30); Red Cell Distribution Width 14.8 % (11.6-17.2); White Blood Count 9.6 th/mm3 (4.0-11.0)
[2018-11-09 07:11] LABS: Alanine Aminotransferase 11 U/L (10-53); Alkaline Phosphatase 66 U/L (45-117); Aspartate Aminotransferase 13 U/L (15-37); Blood Urea Nitrogen 3 mg/dL (7-18); Glomerular Filtration Rate Greater Than 89 mL/min (>89); Glucose,Random 73 mg/dL (74-106); Total Protein 6.7 g/dL (6.4-8.2)
[2018-11-09] MEDS: Lactobacillus Acidophilus/L. Spores Tablet PO SCH ×3 (08:00→17:45)
--- NOTE | 2018-11-09 12:53 | P.PNIM ---
Subjective Interval history: Patient has been transitioned off of vancomycin. Currently she is on Levaquin and Rocephin. No new complaints from the patient. No acute distress today. She slept better with Ambien. Physical Exam Vital signs: Vital Signs 11/08/18 13:30 11/08/18 14:00 11/08/18 16:00 Temperature 96 F L Pulse Rate 90 Respiratory Rate 20 19 20 Blood Pressure 101/64 Pulse Oximetry 100 11/08/18 17:44 11/08/18 18:14 11/08/18 20:00 Temperature 96.1 F L Pulse Rate 92 H Respiratory Rate 19 18 20 Blood Pressure 105/51 L Pulse Oximetry 98 11/09/18 00:00 11/09/18 07:45 11/09/18 08:50 Temperature 96.5 F L 96.1 F L Pulse Rate 92 H 95 H Respiratory Rate 20 20 20 Blood Pressure 101/59 L 95/63 L Pulse Oximetry 98 95 11/09/18 09:12 11/09/18 11:15 Temperature Pulse Rate 101 H Respiratory Rate 16 20 Blood Pressure Pulse Oximetry Intake & Output 11/08/18 11/09/18 11/09/18 18:59 06:59 18:59 Intake Total 3877.5 / 3877.5 1007.5 / 1007.5 Balance 3877.5 / 3877.5 1007.5 / 1007.5 Weight 51.7 kg Intake: IV 757.5 / 757.5 1007.5 / 1007.5 NS Inj 1,000 ML @ 50 mls/hr IV. 500 / 500 500 / 500 CONT .Q20H [facility] Rx#:[id number] Levaquin 750 mg Premix Inj 150 150 / 150 ML @ 100 mls/hr IV.SIG Q24H [facility] Rx#:[id number] Vancomycin Inj 750 MG In NS Inj 257.5 / 257.5 257.5 / 257.5 250 ML @ 250 mls/hr IV.SIG Q12H [facility] Rx#:[id number] Rocephin Inj 1,000 MG In NS Inj 100 / 100 100 ML @ 200 mls/hr IV.SIG Q24H [facility] Rx#:[id number] Oral 3120 / 3120 Other: # Voids 12 4 # Bowel Movements 0 Narrative: GENERAL: NAD, A&Ox3 HEAD: Normocephalic. NECK: Supple, trachea midline. No lymphadenopathy. EYES: No scleral icterus. No injection or drainage. CARDIOVASCULAR: Regular rate and rhythm without murmurs, gallops, or rubs. RESPIRATORY: No accessory muscle use. Decreased breath sounds at left lower lung. GASTROINTESTINAL: Abdomen soft, non-tender, nondistended. MUSCULOSKELETAL: No cyanosis, or edema. SKIN: Warm and dry. NEURO: No focal neurological deficits. Results Labs CBC & Chem 7: 11/09/18 05:23 11/09/18 05:23 Labs: Microbiology 11/06/18 15:40 Blood - Peripheral Aerobic Blood Culture - Preliminary No growth in 3 days 11/06/18 15:40 Blood - Peripheral Anaerobic Blood Culture - Preliminary No growth in 3 days 11/06/18 15:35 Blood - Peripheral Aerobic Blood Culture - Preliminary No growth in 3 days 11/06/18 15:35 Blood - Peripheral Anaerobic Blood Culture - Preliminary No growth in 3 days 11/07/18 02:00 Sputum - Expectorated Sputum Gram Stain - Final 11/07/18 02:00 Sputum - Expectorated Sputum Sputum Culture - Final Beta Strep not group A Assessment and Plan Plan 47-year-old female admitted secondary to cavitary pneumonia Pulmonology consult pending. Patient is currently weaned down to 2 antibiotic treatments based on culture results. Insomnia Ambien Cavitary pneumonia, left lower lobe Vancomycin Levaquin Probiotics Oxygen is needed Albuterol nebulized treatments as needed ID following Pulmonology following Need for bronchoscopy versus decortication Versus another trial of medical management is being determined Beta strep, not group A, grown on culture of sputum General anxiety disorder Continue Xanax DVT Prophylaxis Patient ambulatory SCDs Progress Note: Quality VTE Deep Vein Thrombosis/Pulmonary Embolism Present on Admission: No
--- NOTE | 2018-11-09 14:56 | MB ---
cc: Anabella Kyle MD DATE: 11/09/2018 REASON FOR CONSULTATION: Pneumonia. HISTORY OF PRESENT ILLNESS: The patient is a 47-year-old female with long heavy smoking history and probable underlying COPD, complaining of cough, expectoration of whitish, yellowish mucoid sputum since June. A CTA was done upon presentation to the emergency room because of her persistent cough and expectoration and shortness of breath. She had lost about 20 pounds in the last 8 weeks. The CTA had revealed a dense left lower lobe infiltrate with cavitation. She has been treated with antibiotic therapy followed by infectious disease. PAST MEDICAL HISTORY: COPD, mood disorder, namely anxiety. She had elbow surgery in the past. Denies history of diabetes, hypertension, or underlying heart disease. SOCIAL HISTORY: Smokes over a pack a day for 30 years. MEDICATIONS: Include 1. Levofloxacin. 2. Tylenol as needed. 3. Hydrocodone/acetaminophen as needed. 4. Alprazolam. 5. Ceftriaxone. 6. Ambien at bedtime as needed. FAMILY HISTORY: Noncontributory. ALLERGIES: PENICILLIN AND CODEINE. REVIEW OF SYSTEMS: A 12-point review of systems as per HPI and past history, otherwise negative. PHYSICAL EXAMINATION: GENERAL: The patient is alert. VITAL SIGNS: Temperature 97, pulse 90, respirations 20, blood pressure 100/60, O2 saturation 98% on room air. HEENT: Unremarkable. Eyes without icterus. NECK: Without adenopathy, thyroid enlargement. Central trachea. CHEST: Scattered rhonchi, wheeze bilaterally. CARDIAC: PMI not appreciated. S1, S2 audible. No murmur. No rub. ABDOMEN: Lax, bowel sounds audible. EXTREMITIES: No clubbing, cyanosis, or edema. SKIN: Normal. No lymphadenopathy. LABORATORY DATA: White count 9.6, hemoglobin 9.1, hematocrit 26, platelet count 831,000. Sodium 134, potassium 3.3, BUN 3, creatinine 0.3. Serum albumin 1.7. A CT angiogram with dense consolidation left lower lobe with cavitation. No pulmonary emboli identified. IMPRESSION: 1. Cavitary pneumonia, left lower lung. 2. Chronic obstructive pulmonary disease. 3. Tobacco abuse. 4. Anorexia and weight loss. PLAN: The patient has obvious pneumonia, which is being treated at present. The patient is followed by ID. The cause of the pneumonia may be infectious bacterial; however, underlying malignancy needs to be ruled out. Bronchoscopy would be appropriate, which has been offered the patient in the past; however, she has declined apparently for financial reasons. Procedure and complications were explained. The patient agrees to proceed at this time. I do thank you for asking me to partake in Mrs. Caba's care. Anabella Kyle MD WWW/ts , 02:23 PM , 02:33 PM
[2018-11-09 15:48] LABS: Activated Partial Thrombo Time 34.1 sec (23.4-31.7); INR 1.1 Ratio; Prothrombin Time 10.7 sec (9.8-11.6)
[2018-11-09] MEDS: Zolpidem Tartrate 5 MG Tablet PO PRN (20:57)
[2018-11-10] MEDS: ALPRAZolam 0.25 MG Tablet PO PRN ×6 (01:16→22:34)
[2018-11-10] MEDS: Sod Chloride 0.9% Inj 1,000 ML IV.CONT SCH ×3 (03:55→22:26)
[2018-11-10 06:58] LABS: Baso % (Auto) 0.2 % (0.0-2.0); Eos # (Auto) 0.1 th/mm3 (0.0-0.4); Eos % (Auto) 0.8 % (0.0-4.0); Hematocrit 27.4 % (35.0-46.0); Hemoglobin 9.3 gm/dL (11.6-15.3); Lymph # (Auto) 1.2 th/mm3 (1.0-4.8); Lymph % (Auto) 11.4 % (9.0-44.0); Mean Corpuscular HGB Conc 33.9 % (32.0-36.0); Mean Corpuscular Hemoglobin 31.1 pg (27.0-34.0); Mean Corpuscular Volume 91.9 fL (80.0-100.0); Mean Platelet Volume 6.4 fL (7.0-11.0); Mono # (Auto) 0.7 th/mm3 (0.0-0.9); Mono % (Auto) 6.8 % (0.0-8.0); Neut # (Auto) 8.6 th/mm3 (1.8-7.7); Neut % (Auto) 80.8 % (16.0-70.0); Platelet Count 812 th/mm3 (150-450); Red Blood Count 2.98 mil/mm3 (4.00-5.30); Red Cell Distribution Width 15.2 % (11.6-17.2); White Blood Count 10.6 th/mm3 (4.0-11.0)
[2018-11-10 07:04] LABS: Chloride 99 meq/L (98-107); Potassium 3.6 meq/L (3.5-5.1); Sodium 134 meq/L (136-145)
[2018-11-10 07:12] LABS: Calcium 8.2 mg/dL (8.5-10.1)
[2018-11-10 07:13] LABS: Albumin 1.7 g/dL (3.4-5.0); Anion Gap 6 meq/L (5-15); Blood Urea Nitrogen 1 mg/dL (7-18); Carbon Dioxide 28.7 meq/L (21.0-32.0); Glucose,Random 85 mg/dL (74-106)
[2018-11-10 07:16] LABS: Alanine Aminotransferase 11 U/L (10-53); Aspartate Aminotransferase 12 U/L (15-37); Glomerular Filtration Rate Greater Than 89 mL/min (>89)
[2018-11-10 07:17] LABS: Total Protein 6.7 g/dL (6.4-8.2)
[2018-11-10 07:19] LABS: Alkaline Phosphatase 74 U/L (45-117)
[2018-11-10 08:01] LABS: Platelet Morphology Normal (Normal)
[2018-11-10] MEDS ORDERED: Sodium Chlor 0.9% Inj 250 ML IV.SIG SCH (08:55)
[2018-11-10] MEDS: Lactobacillus Acidophilus/L. Spores Tablet PO SCH ×3 (08:59→17:57)
--- NOTE | 2018-11-10 10:34 | P.PNIM ---
Subjective Interval history: Plan for bronchoscopy today. Patient has no new complaints. She is nervous about the study. Physical Exam Vital signs: Vital Signs 11/09/18 11:15 11/09/18 12:00 11/09/18 16:25 Temperature 97.1 F L 97.2 F L Pulse Rate 97 H 109 H Respiratory Rate 20 20 20 Blood Pressure 99/56 L 97/59 L Pulse Oximetry 98 98 11/09/18 16:29 11/09/18 16:45 11/09/18 17:44 Temperature Pulse Rate Respiratory Rate 20 20 20 Blood Pressure Pulse Oximetry 11/09/18 20:00 11/09/18 20:26 11/10/18 00:00 Temperature 98.8 F 97.1 F L Pulse Rate 101 H 107 H 105 H Respiratory Rate 16 16 20 Blood Pressure 99/77 L 87/58 L Pulse Oximetry 98 98 11/10/18 07:54 11/10/18 08:00 11/10/18 09:27 Temperature 96.5 F L Pulse Rate 100 H 110 H 103 H Respiratory Rate 20 20 Blood Pressure 85/53 L 99/72 L Pulse Oximetry 97 Intake & Output 11/09/18 11/10/18 11/10/18 18:59 06:59 18:59 Intake Total 2672 / 2672 1180 / 1180 1250 / 1250 Balance 2672 / 2672 1180 / 1180 1250 / 1250 Weight 51.7 kg Intake: IV 1150 / 1150 1100 / 1100 1250 / 1250 NS Inj 1,000 ML @ 100 mls/hr IV 1000 / 1000 1000 / 1000 1000 / 1000 .CONT .Q10H [facility] Rx#:[id number] Levaquin 750 mg Premix Inj 150 150 / 150 ML @ 100 mls/hr IV.SIG Q24H [facility] Rx#:[id number] NS Inj 250 ML @ 500 mls/hr IV. 250 / 250 SIG BOLUS [facility] Rx#:[id number] Rocephin Inj 1,000 MG In NS Inj 100 / 100 100 ML @ 200 mls/hr IV.SIG Q24H [facility] Rx#:[id number] Oral 1522 / 1522 80 / 80 Other: # Voids 7 # Bowel Movements 0 Narrative: GENERAL: NAD, A&Ox3 HEAD: Normocephalic. NECK: Supple, trachea midline. No lymphadenopathy. EYES: No scleral icterus. No injection or drainage. CARDIOVASCULAR: Regular rate and rhythm without murmurs, gallops, or rubs. RESPIRATORY: No accessory muscle use. Decreased breath sounds at left lower lung. GASTROINTESTINAL: Abdomen soft, non-tender, nondistended. MUSCULOSKELETAL: No cyanosis, or edema. SKIN: Warm and dry. NEURO: No focal neurological deficits. Results Labs CBC & Chem 7: 11/10/18 06:12 11/10/18 06:12 Labs: Microbiology 11/06/18 15:40 Blood - Peripheral Aerobic Blood Culture - Preliminary No growth in 3 days 11/06/18 15:40 Blood - Peripheral Anaerobic Blood Culture - Preliminary No growth in 3 days 11/06/18 15:35 Blood - Peripheral Aerobic Blood Culture - Preliminary No growth in 3 days 11/06/18 15:35 Blood - Peripheral Anaerobic Blood Culture - Preliminary No growth in 3 days 11/07/18 02:00 Sputum - Expectorated Sputum Gram Stain - Final 11/07/18 02:00 Sputum - Expectorated Sputum Sputum Culture - Final Beta Strep not group A Assessment and Plan Plan 47-year-old female admitted secondary to cavitary pneumonia Plan is for bronchoscopy with pulmonology today. Patient is tolerating antibiotic treatments. Signs of infection have improved. Continue current antibiotic treatments. Insomnia Ambien Cavitary pneumonia, left lower lobe Vancomycin Levaquin Probiotics Oxygen is needed Albuterol nebulized treatments as needed ID following Pulmonology following Need for bronchoscopy versus decortication Versus another trial of medical management is being determined Beta strep, not group A, grown on culture of sputum General anxiety disorder Continue Xanax DVT Prophylaxis Patient ambulatory SCDs Progress Note: Quality VTE Deep Vein Thrombosis/Pulmonary Embolism Present on Admission: No
[2018-11-10] MEDS ORDERED: fentaNYL Citrate Inj 100 MCG/2 ML Ampul ONE (14:05)
[2018-11-10] MEDS ORDERED: Chlorhexidine Gluconate 2% 1 Pack (2 Cloths) TOPICAL ONE (14:15)
[2018-11-10] MEDS ORDERED: Sodium Chlor 0.9% Inj 500 ML IV.CONT ONE (14:15)
[2018-11-10] MEDS ORDERED: Metoprolol Tartrate 25 MG Tablet PO ONE (14:15)
[2018-11-10] MEDS ORDERED: Phenylephrine/NS 1000 MCG/10ML Syringe IV.PUSH ONE (14:28)
[2018-11-10] MEDS ORDERED: Lidocaine PF 1% Inj 5 ML Syringe INFILTRATN ONE (14:28)
[2018-11-10] MEDS ORDERED: Lidocaine 2% Inj 50 ML Vial ONE (14:32)
[2018-11-10] MEDS ORDERED: EPINEPHrine PF/SF Inj 1 MG/ML Ampul I-OCULAR ONE (14:32)
--- NOTE | 2018-11-10 14:56 | P.PN ---
Subjective Interval history: alert NAD Physical Exam Vital signs: Vital Signs 11/09/18 16:25 11/09/18 16:29 11/09/18 16:45 Temperature 97.2 F L Pulse Rate 109 H Respiratory Rate 20 20 20 Blood Pressure 97/59 L Pulse Oximetry 98 11/09/18 17:44 11/09/18 20:00 11/09/18 20:26 Temperature 98.8 F Pulse Rate 101 H 107 H Respiratory Rate 20 16 16 Blood Pressure 99/77 L Pulse Oximetry 98 11/10/18 00:00 11/10/18 07:54 11/10/18 08:00 Temperature 97.1 F L 96.5 F L Pulse Rate 105 H 100 H 110 H Respiratory Rate 20 20 20 Blood Pressure 87/58 L 85/53 L Pulse Oximetry 98 97 11/10/18 09:27 11/10/18 12:00 11/10/18 13:55 Temperature 96.8 F L 96.8 F L Pulse Rate 103 H 109 H 109 H Respiratory Rate 20 20 Blood Pressure 99/72 L 101/55 L 101/55 L Pulse Oximetry 96 96 Intake & Output 11/09/18 11/10/18 11/10/18 18:59 06:59 18:59 Intake Total 2672 / 2672 1180 / 1180 1250 / 1250 Balance 2672 / 2672 1180 / 1180 1250 / 1250 Weight 51.7 kg Intake: IV 1150 / 1150 1100 / 1100 1250 / 1250 NS Inj 1,000 ML @ 100 mls/hr IV 1000 / 1000 1000 / 1000 1000 / 1000 .CONT .Q10H [facility] Rx#:[id number] Levaquin 750 mg Premix Inj 150 150 / 150 ML @ 100 mls/hr IV.SIG Q24H [facility] Rx#:[id number] NS Inj 250 ML @ 500 mls/hr IV. 250 / 250 SIG BOLUS [facility] Rx#:[id number] Rocephin Inj 1,000 MG In NS Inj 100 / 100 100 ML @ 200 mls/hr IV.SIG Q24H [facility] Rx#:[id number] Oral 1522 / 1522 80 / 80 Other: # Voids 7 # Bowel Movements 0 Narrative: GENERAL: Thin built, well-developed, not in acute distress SKIN: Cool and dry, no generalized rash HEAD: Atraumatic. Normocephalic. No temporal or scalp tenderness. EYES: Pupils equal round and reactive. Scleral icterus. No injection or drainage. No petechia ENT: Nothing abnormal detected NECK: Trachea midline. Supple, nontender, no meningeal signs. CARDIOVASCULAR: HS audible. RESPIRATORY: Clear to auscultation bilaterally. Decreased air entry in the bases. GASTROINTESTINAL: Abdomen soft nontender. MUSCULOSKELETAL: Extremities without clubbing, cyanosis. NEUROLOGICAL: Alert oriented 3. Nonfocal. Psych cooperative IV line sites ok. Results - Labs CBC & Chem 7: 11/10/18 06:12 11/10/18 06:12 Laboratory Results - last 24 hr 11/09/18 11/10/18 11/10/18 15:24 06:12 06:12 CBC w Diff Slide review pending WBC 10.6 RBC 2.98 L Hgb 9.3 L Hct 27.4 L MCV 91.9 MCH 31.1 MCHC 33.9 RDW 15.2 Plt Count 812 H MPV 6.4 L Neut % (Auto) 80.8 H Lymph % (Auto) 11.4 [place] % (Auto) 6.8 Eos % (Auto) 0.8 Baso % (Auto) 0.2 Neut # (Auto) 8.6 H Lymph # (Auto) 1.2 [place] # (Auto) 0.7 Eos # (Auto) 0.1 Baso # (Auto) 0.0 WBC Differential . Diff Scan Auto diff confirmed Differential Comment . Platelet Estimate High H Platelet Morphology Normal PT 10.7 INR 1.1 APTT 34.1 H Sodium 134 L Potassium 3.6 Chloride 99 Carbon Dioxide 28.7 Anion Gap 6 BUN 1 L Creatinine 0.42 L Estimated GFR Greater than 89 Random Glucose 85 Calcium 8.2 L Total Bilirubin 0.2 AST 12 L ALT 11 Alkaline Phosphatase 74 Total Protein 6.7 Albumin 1.7 L Microbiology 11/06/18 15:40 Blood - Peripheral Aerobic Blood Culture - Preliminary No growth in 4 days 11/06/18 15:40 Blood - Peripheral Anaerobic Blood Culture - Preliminary No growth in 4 days 11/06/18 15:35 Blood - Peripheral Aerobic Blood Culture - Preliminary No growth in 4 days 11/06/18 15:35 Blood - Peripheral Anaerobic Blood Culture - Preliminary No growth in 4 days Assessment and Plan - Plan LLL CAVITARY PNA COPD PLAN ANTIBX PER ID BRONCHOSCOPY TODAY
--- NOTE | 2018-11-10 16:30 | MB ---
cc: Anabella Kyle MD DATE: 11/10/2018 PROCEDURE: Fiberoptic bronchoscopy, flexible. REASON FOR BRONCHOSCOPY: Cavitary pneumonia, left lower lung, rule out underlying malignancy. DESCRIPTION OF PROCEDURE: Fiberoptic bronchoscopy performed via LMA. Worthy of note is the patient's poor dental hygiene. Vocal cords were intact. Trachea mildly hyperemic. Charlette sharp. Right main bronchus, right upper, middle, and lower lobes no obstruction, no mass lesion. Left main bronchus, left upper and lower lobes no obstruction, no mass lesion. Yellowish thick mucoid secretion aspirated, especially so from the left main bronchus. All mucus was removed. Washings obtained from both sides of the tracheobronchial tree for routine TB, fungal cultures as well as cytological exam. Cytologic brush biopsy, left lower lobe, obtained for cytological exam. The procedure well tolerated. The patient was transferred to the recovery room in stable condition. IMPRESSION: 1. Moderate tracheobronchitis. 2. Excess mucoid secretion. 3. No endobronchial obstruction or mass lesion. 4. Samples obtained as above. 5. Procedure well tolerated. The patient was transferred to recovery in stable condition. Anabella Kyle MD WWW/adán , 02:58 PM , 03:05 PM
[2018-11-10] MEDS: Zolpidem Tartrate 5 MG Tablet PO PRN (22:34)
[2018-11-11] MEDS: ALPRAZolam 0.25 MG Tablet PO PRN ×5 (04:59→20:33)
[2018-11-11] MEDS: Sod Chloride 0.9% Inj 1,000 ML IV.CONT SCH ×3 (08:44→20:34)
[2018-11-11] MEDS: Lactobacillus Acidophilus/L. Spores Tablet PO SCH ×3 (08:45→17:01)
--- NOTE | 2018-11-11 10:26 | P.PNIM ---
Subjective Interval history: Patient tolerated bronchoscopy well yesterday. She continued to have a productive cough. No fevers. No leukocytosis. Currently she is on Levaquin and Rocephin. If no further procedures, possibility of discharge on antibiotics. Physical Exam Vital signs: Vital Signs 11/10/18 12:00 11/10/18 13:55 11/10/18 15:04 Temperature 96.8 F L 96.8 F L 98.1 F Pulse Rate 109 H 109 H 109 H Respiratory Rate 20 20 14 Blood Pressure 101/55 L 101/55 L 67/39 L Pulse Oximetry 96 96 91 L 11/10/18 15:07 11/10/18 15:10 11/10/18 15:18 Temperature Pulse Rate 124 H 121 H 111 H Respiratory Rate 14 14 14 Blood Pressure 86/50 L 79/48 L 85/51 L Pulse Oximetry 91 L 96 100 11/10/18 15:23 11/10/18 15:40 11/10/18 17:20 Temperature 96.4 F L Pulse Rate 130 H 107 H 108 H Respiratory Rate 16 16 20 Blood Pressure 104/63 84/57 L 99/58 L Pulse Oximetry 99 94 L 97 11/10/18 19:29 11/10/18 19:48 11/10/18 20:00 Temperature 97.4 F L Pulse Rate 121 H 100 H Respiratory Rate 18 24 18 Blood Pressure 98/67 L Pulse Oximetry 99 11/10/18 23:57 11/11/18 07:44 11/11/18 08:00 Temperature 97.4 F L 96 F L Pulse Rate 106 H 99 H Respiratory Rate 18 20 20 Blood Pressure 86/53 L 85/63 L Pulse Oximetry 96 97 11/11/18 08:45 11/11/18 09:49 Temperature Pulse Rate Respiratory Rate 20 20 Blood Pressure Pulse Oximetry Intake & Output 11/10/18 11/11/18 11/11/18 18:59 06:59 18:59 Intake Total 2870 / 2870 3750 / 3750 1500 / 1500 Balance 2870 / 2870 3750 / 3750 1500 / 1500 Weight 51.6 kg Intake: IV 1750 / 1750 1250 / 1250 1500 / 1500 LR 1000 mL Inj 1,000 ML @ 30 500 / 500 500 / 500 mls/hr IV.CONT .Q24H [facility] Rx#: [id number] NS Inj 1,000 ML @ 100 mls/hr IV 1000 / 1000 1000 / 1000 1000 / 1000 .CONT .Q10H [facility] Rx#:[id number] Levaquin 750 mg Premix Inj 150 150 / 150 ML @ 100 mls/hr IV.SIG Q24H [facility] Rx#:[id number] NS Inj 250 ML @ 500 mls/hr IV. 250 / 250 SIG BOLUS [facility] Rx#:[id number] Rocephin Inj 1,000 MG In NS Inj 100 / 100 100 ML @ 200 mls/hr IV.SIG Q24H [facility] Rx#:[id number] Oral 120 / 120 2500 / 2500 Anesthesia Amount 600 / 600 Other 400 / 400 Other: # Voids 4 6 Date of Last Bowel Movement 11/07/18 11/07/18 # Bowel Movements 0 Narrative: GENERAL: NAD, A&Ox3 HEAD: Normocephalic. NECK: Supple, trachea midline. No lymphadenopathy. EYES: No scleral icterus. No injection or drainage. CARDIOVASCULAR: Regular rate and rhythm without murmurs, gallops, or rubs. RESPIRATORY: No accessory muscle use. Decreased breath sounds at left lower lung. GASTROINTESTINAL: Abdomen soft, non-tender, nondistended. MUSCULOSKELETAL: No cyanosis, or edema. SKIN: Warm and dry. NEURO: No focal neurological deficits. Results Labs CBC & Chem 7: 11/10/18 06:12 11/10/18 06:12 Labs: Microbiology 11/06/18 15:40 Blood - Peripheral Aerobic Blood Culture - Preliminary No growth in 4 days 11/06/18 15:40 Blood - Peripheral Anaerobic Blood Culture - Preliminary No growth in 4 days 11/06/18 15:35 Blood - Peripheral Aerobic Blood Culture - Preliminary No growth in 4 days 11/06/18 15:35 Blood - Peripheral Anaerobic Blood Culture - Preliminary No growth in 4 days Assessment and Plan Plan 47-year-old female admitted secondary to cavitary pneumonia Bronchoscopy completed. Patient is tolerating antibiotic treatments. Continue Rocephin and Levaquin. Determination of transition to outpatient antibiotics in process, if we are awaiting bronchoscopy cultures she may stay in the hospital longer. Insomnia Ambien Cavitary pneumonia, left lower lobe Vancomycin Levaquin Probiotics Oxygen is needed Albuterol nebulized treatments as needed ID following Pulmonology following Beta strep, not group A, grown on culture of sputum General anxiety disorder Continue Xanax DVT Prophylaxis Patient ambulatory SCDs Progress Note: Quality VTE Deep Vein Thrombosis/Pulmonary Embolism Present on Admission: No
[2018-11-12] MEDS: ALPRAZolam 0.25 MG Tablet PO PRN ×6 (00:05→20:33)
[2018-11-12] MEDS: Zolpidem Tartrate 5 MG Tablet PO PRN (00:07)
[2018-11-12] MEDS: Sod Chloride 0.9% Inj 1,000 ML IV.CONT SCH ×3 (02:58→14:41)
[2018-11-12] MEDS: Lactobacillus Acidophilus/L. Spores Tablet PO SCH ×3 (08:17→17:12)
--- NOTE | 2018-11-12 13:03 | P.PNIM ---
Subjective Interval history: Patient feels well. She is coughing up some blood, mild hematemesis is likely related to recent bronchoscopy or her underlying admit pathology. No new complaints. No fever. Physical Exam Vital signs: Vital Signs 11/11/18 16:00 11/11/18 16:44 11/11/18 16:50 Temperature 96.6 F L Pulse Rate 88 Respiratory Rate 20 20 20 Blood Pressure 85/66 L Pulse Oximetry 99 11/11/18 18:23 11/11/18 20:00 11/11/18 20:33 Temperature 96.3 F L Pulse Rate 96 H Respiratory Rate 20 20 18 Blood Pressure 104/61 Pulse Oximetry 95 11/12/18 00:00 11/12/18 03:50 11/12/18 08:17 Temperature 96.4 F L Pulse Rate 94 H 83 Respiratory Rate 20 16 19 Blood Pressure 123/69 Pulse Oximetry 95 11/12/18 08:47 11/12/18 11:57 Temperature Pulse Rate Respiratory Rate 18 19 Blood Pressure Pulse Oximetry Intake & Output 11/11/18 11/12/18 11/12/18 18:59 06:59 18:59 Intake Total 3970 / 3970 2820 / 2820 Balance 3970 / 3970 2820 / 2820 Weight 51.6 kg Intake: IV 2650 / 2650 2100 / 2100 LR 1000 mL Inj 1,000 ML @ 30 500 / 500 mls/hr IV.CONT .Q24H ONE Rx#: [id number] NS Inj 1,000 ML @ 100 mls/hr IV 1999 / 1999 1999 / 1999 .CONT .Q10H [facility] Rx#:[id number] Levaquin 750 mg Premix Inj 150 150 / 150 ML @ 100 mls/hr IV.SIG Q24H [facility] Rx#:[id number] Rocephin Inj 1,000 MG In NS Inj 100 / 100 100 ML @ 200 mls/hr IV.SIG Q24H [facility] Rx#:[id number] Oral 1320 / 1320 720 / 720 Other: # Voids 7 4 Date of Last Bowel Movement 11/07/18 # Bowel Movements 0 Narrative: GENERAL: NAD, A&Ox3 HEAD: Normocephalic. NECK: Supple, trachea midline. No lymphadenopathy. EYES: No scleral icterus. No injection or drainage. CARDIOVASCULAR: Regular rate and rhythm without murmurs, gallops, or rubs. RESPIRATORY: No accessory muscle use. Decreased breath sounds at left lower lung. GASTROINTESTINAL: Abdomen soft, non-tender, nondistended. MUSCULOSKELETAL: No cyanosis, or edema. SKIN: Warm and dry. NEURO: No focal neurological deficits. Results Labs CBC & Chem 7: 11/10/18 06:12 11/10/18 06:12 Labs: Microbiology 11/10/18 15:47 Bronchial - Bronchial Gram Stain - Final 11/10/18 15:47 Bronchial - Bronchial Bronchial Culture - Final No growth in 48 hours 11/10/18 16:17 Bronchial Washings - Bronchial Acid Fast Bacilli Smear - Final No acid fast bacilli seen 11/10/18 16:17 Bronchial Washings - Bronchial Fungal Smear - Final No fungal elements seen 11/06/18 15:40 Blood - Peripheral Aerobic Blood Culture - Final No growth in 5 days 11/06/18 15:40 Blood - Peripheral Anaerobic Blood Culture - Final No growth in 5 days 11/06/18 15:35 Blood - Peripheral Aerobic Blood Culture - Final No growth in 5 days 11/06/18 15:35 Blood - Peripheral Anaerobic Blood Culture - Final No growth in 5 days Assessment and Plan Plan 47-year-old female admitted secondary to cavitary pneumonia Present treatments. If bronchoscopy cultures are negative patient is to be considered for discharge tomorrow. Pulmonology and infectious disease clearance needed prior to discharge. Insomnia Ambien Cavitary pneumonia, left lower lobe Vancomycin Levaquin Probiotics Oxygen is needed Albuterol nebulized treatments as needed ID following Pulmonology following Beta strep, not group A, grown on culture of sputum General anxiety disorder Continue Xanax DVT Prophylaxis Patient ambulatory SCDs Progress Note: Quality VTE Deep Vein Thrombosis/Pulmonary Embolism Present on Admission: No
[2018-11-12 13:57] VITALS: RESP 18
--- NOTE | 2018-11-12 14:06 | P.PNPL ---
Subjective Interval history: Patient is sitting in bed in NAD. On room air oxygen when seen. Afebrile. Physical Exam Vital signs: Vital Signs 11/11/18 16:00 11/11/18 16:44 11/11/18 16:50 Temperature 96.6 F L Pulse Rate 88 Respiratory Rate 20 20 20 Blood Pressure 85/66 L Pulse Oximetry 99 11/11/18 18:23 11/11/18 20:00 11/11/18 20:33 Temperature 96.3 F L Pulse Rate 96 H Respiratory Rate 20 20 18 Blood Pressure 104/61 Pulse Oximetry 95 11/12/18 00:00 11/12/18 03:50 11/12/18 08:17 Temperature 96.4 F L Pulse Rate 94 H 83 Respiratory Rate 20 16 19 Blood Pressure 123/69 Pulse Oximetry 95 11/12/18 08:47 11/12/18 11:57 11/12/18 12:27 Temperature Pulse Rate Respiratory Rate 18 19 18 Blood Pressure Pulse Oximetry Intake & Output 11/11/18 11/12/18 11/12/18 18:59 06:59 18:59 Intake Total 3970 / 3970 2820 / 2820 Balance 3970 / 3970 2820 / 2820 Weight 51.6 kg Intake: IV 2650 / 2650 2100 / 2100 LR 1000 mL Inj 1,000 ML @ 30 500 / 500 mls/hr IV.CONT .Q24H ONE Rx#: [id number] NS Inj 1,000 ML @ 100 mls/hr IV 1999 / 1999 1999 / 1999 .CONT .Q10H [facility] Rx#:[id number] Levaquin 750 mg Premix Inj 150 150 / 150 ML @ 100 mls/hr IV.SIG Q24H [facility] Rx#:[id number] Rocephin Inj 1,000 MG In NS Inj 100 / 100 100 ML @ 200 mls/hr IV.SIG Q24H [facility] Rx#:[id number] Oral 1320 / 1320 720 / 720 Other: # Voids 7 4 Date of Last Bowel Movement 11/07/18 # Bowel Movements 0 - Constitutional no acute distress - Routine HEENT Exam Head: Present: normocephalic, atraumatic Eye: Present: EOMI, PERRL, normal accommodation, conjunctivae pink ENT: Present: mucous membranes moist - Routine Neck Exam Present: supple, full ROM - Routine Respiratory Exam Present: CTA bilaterally - Routine Cardiovascular Exam Present: RRR, S1, S2 - Routine Abdominal Exam Present: soft, normoactive bowel sounds - Routine Extremities Exam Present: full ROM, pulses intact - Routine Skin Exam Present: intact, dry - Routine Neurological Exam Present: alert, oriented X3, CN II-XII intact Assessment and Plan - Plan 1)LLL Pneumonia 2)Lung abscess 3)Active tobacco use 4)Likely COPD 5)Thrombocytosis Plan oxygen PRN keep sats >92% Bronchodilators s/p bronch with BAL on 11/10- BAL cx -NGTD Abx- On Levaquin, Vanco and Rocephin- ID is following. Sputum cx: Beta strep, not group A Continue treatment plan
[2018-11-13] VITALS: O2SAT 97
[2018-11-13] MEDS: Zolpidem Tartrate 5 MG Tablet PO PRN (00:10)
[2018-11-13] MEDS: ALPRAZolam 0.25 MG Tablet PO PRN ×4 (00:10→13:12)
[2018-11-13] MEDS: Lactobacillus Acidophilus/L. Spores Tablet PO SCH ×2 (09:09→13:12)
[2018-11-13 10:45] VITALS: BP 100/69; PULSE 98; TEMP 96
--- NOTE | 2018-11-13 16:39 | P.DS ---
DS: Providers Date of admission: 11/06/18 17:53 Primary care physician: No Primary Care Physician Consults: 11/06/18 17:58 Consult to Infectious Diseases Routine Consulting Provider: Brooklynn Roberts Reason for Consultation: Lung Abscesses (coupious, oderous, purulent, productive cough) Notified:: Service Spoke with:: BEBETO Date Notified:: 11/06/18 Time Notified:: 18:05 Comments:: PT 21 Ordering Provider: ALECIA Consult to Pulmonology Routine Consulting Provider: Suhas Landry V Reason for Consultation: Lung Abscesses (coupious, oderous, purulent, productive cough) Notified:: Service Spoke with:: LUCIEN Date Notified:: 11/06/18 Time Notified:: 18:08 Comments:: [facility]PO ED 21 Ordering Provider: ALECIA 11/09/18 08:18 Consult to Pulmonology Routine Consulting Provider: Suhas Landry V Preferred Skidder Loader:: Suhas Landry Reason for Consultation: Reminder: Consult placed 11/06/18 for right lower lung abscesses Notified:: Service Spoke with:: Jie Date Notified:: 11/09/18 Time Notified:: 08:24 Ordering Provider: ALECIA Brief History from admission: Mrs. Caba is a 47 year old female. She says for approximately 8 weeks she has been having problems with recurrent cough. The cough started shortly after a vacation down to [place]. She is a smoker and likely has underlying lung disease. In the past 8 weeks she has visited the hospital several times. She is been diagnosed with pneumonia and treated with antibiotics. Breathing treatments have been provided for symptoms. Despite these treatments the patient has persistent coughing and productive coughing. Sputum and breath have developed a chronic foul odor. No fevers reported. CTA of the chest today shows evidence of a dense left lower lobe consolidation with evidence of multiple abscesses. Largest abscess is 4 cm. No other complaints tonight. DS: Summary Mrs. Caba is a 47-year-old female. She has a past history of recurrent bronchitis/pneumonia. During this hospital stay we found that she has left lower lobe cavitary pneumonia encompassing the entire left lower lobe. Sputum cultures grew beta strep, not group A. Bronchoscopy is performed and no further interventions planned at this time. She is been continued on Rocephin and Levaquin with graduating benefit. Bronchoscopy cultures did not grow any positive sample. Patient is feeling better and at this point she is medically stable and cleared for discharge home. She is discharged on Levaquin and cefuroxime for 20 more days in addition to being on IV antibiotics while inpatient for 1 week. She is instructed to monitor carefully for any recurrence of symptoms. Additionally once antibiotics are discontinued she is advised to come in quickly if she has recurrence of any infectious symptoms. Discharge home today. Time Spent with Patient Total time spent providing and/or coordinating discharge services: Less than 30 minutes Quality: VTE Deep Vein Thrombosis/Pulmonary Embolism Present on Admission: No Results Impressions ITS Impressions Chest X-Ray 11/06/18 15:21 CONCLUSION: Left lower lobe infiltrate with small effusion. Chest CTA 11/06/18 16:30 CONCLUSION: 1. Dense consolidation involving the left lower lobe with suspected intraparenchymal abscesses with the largest measuring 4 cm. 2. No acute pulmonary emboli. Discharge Plan Discharge Disposition Patient Disposition: Discharge Home Discharge Condition Condition: Stable Discharge Order Discharge Orders: Discharge Order (Routine); Ordered 11/13/18 Ordered By: Ricardo Talavera Discharge Details Anticipated Discharge Date: 11/13/18 Discharge Comment: May discharge if cleared by Infectious Disease Physician Physicians Team Primary Care Provider: Primary Kaur Auguste Attending Provider: Ricardo Talavera Other Providers: Brooklynn Roberts ; Suhas Landry V Rxs /Orders / Referrals /Forms Prescriptions: New cefuroxime axetil 500 mg tablet 500 mg PO BID 20 Days Qty: 40 RF: 0 levofloxacin [Levaquin] 750 mg tablet 750 mg PO DAILY 20 Days Qty: 20 RF: 0 Lactobacillus acidophilus Capsule 500 mmu cells PO BID Qty: 60 RF: 0 alprazolam [Xanax] 0.25 mg tablet 0.25 mg PO TID Qty: 10 RF: 0 Continue albuterol sulfate 2.5 mg /3 mL (0.083 %) Solution For Nebulization 2.5 mg INHALATION Q4-6H PRN (Reason: Shortness Of Breath) RF: 0 alprazolam [Xanax] 1 mg Tablet PO BID PRN (Reason: Anxiety) RF: 0 Referrals: Primary Care Kaur Danielle [Primary Care Provider] - See Instructions ( Please call the physician's office TO BOOK F/U APT AFTER WEEKEND AND HOLIDAY, OFFICES WILL OPEN ON WEDNESDAY, IF YOU DO NOT HAVE A PCP CALL [facility] AT ) Discharge Instructions Patient Printed Instructions: Pain Management in Older Adults (DC), COPD ( Chronic Obstructive Pulmonary Disease) (DC), Anxiety (DC), Pneumonia (DC) Status ED Status: Left Department Discharge Information Discharge Date/Time: 11/13/18 14:36
== END 2018-11-13 14:36 | disposition home or self-care (01) | DRG 167 ==
LOC: PHED 14:41 → PHEDA 17:53 → PH3 20:04
PROVIDERS: ADMIT Hospitalist; ATTEND Hospitalist
CPT/HCPCS: 71010; 71045; 71275; 76937; 80053; 80074; 80202; 80307; 82550; 83605; 84484; 85025; 85610; 85730; 86140; 87015; 87040; 87070; 87102; 87116; 87205; 87206; 87275; 87276; 87389; 87556; 87798; 87804; 88112; 88305; 90761; 90765; 90775; 93005; 93306; 94640; 94664; 94665; 96361; 96365; 96375; 99285; J0171; J0696; J1450; J1956; J2001; J2250; J2370; J2704; J2930; J3010; J3370; J7030; J7040; J7050; J7120; Q9967